=== PATIENT | male | born 1940 | race Caucasian/White ===

== ENCOUNTER → 2016-08-26 | Outpatient (CLI) | payer MEDICARE, OTHER ==
[2016-08-26 12:53] LABS: MEAN CORPUSCULAR HEMOGLOBIN 30.3 pg (27.0-33.0); MEAN CORPUSCULAR HGB CONC 32.6 g/dl (32.0-36.5); MEAN CORPUSCULAR VOLUME 92.9 fl (80.0-96.0); RED CELL DISTRIBUTION WIDTH 12.5 % (11.5-14.5); WHITE BLOOD COUNT 4.7 K/mm3 (4.0-10.0)
[2016-08-26 13:20] LABS: ALT/SGPT 22 U/L (12-78); ANION GAP 5 MEQ/L (8-16); AST/SGOT 19 U/L (15-37); BLOOD UREA NITROGEN 19 MG/DL (7-18); CALCIUM LEVEL 8.9 MG/DL (8.8-10.2); CARBON DIOXIDE LEVEL 29 MEQ/L (21-32); CHLORIDE LEVEL 108 MEQ/L (98-107); GLOMERULAR FILTRATION RATE > 60.0 (>42); GLUCOSE, FASTING 105 MG/DL (83-110); POTASSIUM SERUM 4.9 MEQ/L (3.5-5.1); SODIUM LEVEL 142 MEQ/L (136-145)
[2016-08-26 13:21] LABS: ALBUMIN 4.2 GM/DL (3.2-5.2); ALKALINE PHOSPHATASE 94 U/L (45-117); BILIRUBIN,TOTAL 0.6 MG/DL (0.2-1.0); CHOLESTEROL LEVEL 195 MG/DL (<200); FOLATE 14.1 NG/ML; TOTAL PROTEIN 7.2 GM/DL (6.4-8.2); TRIGLYCERIDES LEVEL 83 MG/DL (<150); VITAMIN B12 LEVEL 325 PG/ML
== END ==
LOC: M WUC 09:09
PROVIDERS: ATTEND Internal Medicine
DX: G62.9 Polyneuropathy, unspecified (principal); R73.01 Impaired fasting glucose; E78.00 Pure hypercholesterolemia, unspecified

== ENCOUNTER → 2017-11-19 | Outpatient (REF) | payer MEDICARE, OTHER ==
[2017-11-19 12:26] LABS: HEMATOCRIT 44.8 % (42.0-52.0); HEMOGLOBIN 14.9 g/dl (13.5-17.5); MEAN CORPUSCULAR HEMOGLOBIN 30.3 pg (27.0-33.0); MEAN CORPUSCULAR HGB CONC 33.3 g/dl (32.0-36.5); MEAN CORPUSCULAR VOLUME 91.1 fl (80.0-96.0); PLATELET COUNT, AUTOMATED 216 10^3/uL (150-450); RED BLOOD COUNT 4.92 10^6/uL (4.30-6.10); RED CELL DISTRIBUTION WIDTH 12.2 % (11.5-14.5)
[2017-11-19 13:44] LABS: ALBUMIN 3.9 GM/DL (3.2-5.2); ALBUMIN/GLOBULIN RATIO 1.15 (1.00-1.93); ALKALINE PHOSPHATASE 94 U/L (45-117); ALT/SGPT 23 U/L (12-78); ANION GAP 7 MEQ/L (8-16); AST/SGOT 16 U/L (7-37); BILIRUBIN,TOTAL 0.5 MG/DL (0.2-1.0); BLOOD UREA NITROGEN 21 MG/DL (7-18); CALCIUM LEVEL 8.9 MG/DL (8.8-10.2); CARBON DIOXIDE LEVEL 28 MEQ/L (21-32); CHLORIDE LEVEL 109 MEQ/L (98-107); CHOLESTEROL LEVEL 183 MG/DL (<200); CHOLESTEROL RISK RATIO 2.904 (<5); CREATININE FOR GFR 1.23 MG/DL (0.70-1.30); GLOMERULAR FILTRATION RATE > 60.0 (>42); GLUCOSE, FASTING 96 MG/DL (70-100); HDL CHOLESTEROL 63 MG/DL (>40); LDL CHOLESTEROL 106.8 MG/DL (<100); NON-HDL-C 120 MG/DL; POTASSIUM SERUM 4.6 MEQ/L (3.5-5.1); SODIUM LEVEL 144 MEQ/L (136-145); TOTAL PROTEIN 7.3 GM/DL (6.4-8.2); TRIGLYCERIDES LEVEL 66 MG/DL (<150)
[2017-11-19 14:06] LABS: VITAMIN B12 LEVEL 395 PG/ML
[2017-11-19 14:07] LABS: FOLATE 12.5 NG/ML
== END ==
LOC: M SFHCPLAZ 09:04
DX: G62.9 Polyneuropathy, unspecified (principal); M88.9 Osteitis deformans of unspecified bone; E78.00 Pure hypercholesterolemia, unspecified; R73.01 Impaired fasting glucose; Z79.899 Other long term (current) drug therapy
CPT/HCPCS: 82746

== ENCOUNTER 2018-02-16 06:36 | Day surgery (SDC) | payer MEDICARE, OTHER ==
[2018-02-16] MEDS ORDERED: NS 1,000 ML IV (07:30)
[2018-02-16] MEDS ORDERED: LIDOCAINE 2% INJ 100 MG/5 ML SDV (FOR ANES.) As Ordered (07:38)
[2018-02-16] MEDS ORDERED: PROPOFOL 500 MG/50 ML VIAL As Ordered (07:38)
== END 2018-02-16 08:08 | disposition home or self-care (01) ==
LOC: M OPP 06:36
DX: Z12.11 Encounter for screening for malignant neoplasm of colon (principal); Z86.010 Personal history of colon polyps; D37.3 Neoplasm of uncertain behavior of appendix; D12.5 Benign neoplasm of sigmoid colon; Z98.0 Intestinal bypass and anastomosis status; K57.30 Diverticulosis of large intestine without perforation or abscess without bleeding; K64.8 Other hemorrhoids; Z86.718 Personal history of other venous thrombosis and embolism; Z86.19 Personal history of other infectious and parasitic diseases; R06.02 Shortness of breath; M19.90 Unspecified osteoarthritis, unspecified site; G62.9 Polyneuropathy, unspecified; M88.0 Osteitis deformans of skull; Z86.711 Personal history of pulmonary embolism; R06.83 Snoring; G47.30 Sleep apnea, unspecified; N40.1 Benign prostatic hyperplasia with lower urinary tract symptoms; Z87.19 Personal history of other diseases of the digestive system; Z96.652 Presence of left artificial knee joint; Z88.8 Allergy status to other drugs, medicaments and biological substances; Z79.82 Long term (current) use of aspirin; Z79.899 Other long term (current) drug therapy; Z80.52 Family history of malignant neoplasm of bladder
CPT/HCPCS: 45385

== ENCOUNTER 2018-09-01 10:28 | Emergency (ER) | payer MEDICARE, OTHER ==
[~2018-09-01] VITALS: Ht 182.9 cm; Wt 91.6 kg
[~2018-09-01 10:28] MED LIST: ASPI81TA85 PO; MAGN250T9 PO; MULTCAP PO; NORT25CA2 PO
--- NOTE | 2018-09-01 11:43 | REP ---
SINGLE VIEW CHEST: There is no evidence of acute infiltrate. No pleural effusion is seen. The heart is normal in size. The mediastinal silhouette is unremarkable. The visualized osseous structures are intact. There is an old healed fracture of the left clavicle. IMPRESSION: No acute pulmonary disease. Electronically Signed by Hamilton Lee MD 09/02/2018 02:58 P
[2018-09-01 11:48] LABS: BASO % 0.7 % (0.0-1.0); EOS # 0.4 10^3/uL (0.0-0.50); EOS % 5.8 % (0.0-3.0); HEMATOCRIT 42.9 % (42.0-52.0); HEMOGLOBIN 14.1 g/dl (13.5-17.5); LYMPH # 1.5 10^3/uL (1.5-4.5); LYMPH % 24.4 % (24.0-44.0); MEAN CORPUSCULAR HEMOGLOBIN 29.6 pg (27.0-33.0); MEAN CORPUSCULAR HGB CONC 32.9 g/dl (32.0-36.5); MEAN CORPUSCULAR VOLUME 90.1 fl (80.0-96.0); MONO # 0.6 10^3/uL (0.0-0.8); MONO % 10.6 % (0.0-5.0); NEUTROPHILS # 3.5 10^3/uL (1.8-7.7); NEUTROPHILS % 57.8 % (36.0-66.0); PLATELET COUNT, AUTOMATED 220 10^3/uL (150-450); RED BLOOD COUNT 4.76 10^6/uL (4.30-6.10); WHITE BLOOD COUNT 6.1 10^3/uL (4.0-10.0)
[2018-09-01 11:55] LABS: INR 1.05; PROTHROMBIN TIME 13.8 SECONDS (12.1-14.4)
[2018-09-01 12:21] LABS: ALBUMIN 3.6 GM/DL (3.2-5.2); ALT/SGPT 29 U/L (12-78); BILIRUBIN,DIRECT < 0.1 MG/DL (0.0-0.2); BILIRUBIN,TOTAL 0.5 MG/DL (0.2-1.0); BLOOD UREA NITROGEN 22 MG/DL (7-18); CARBON DIOXIDE LEVEL 25 MEQ/L (21-32); CHLORIDE LEVEL 108 MEQ/L (98-107); CPK CREATINE PHOSPHOKINASE 144 U/L (39-308); CREATININE FOR GFR 1.19 MG/DL (0.70-1.30); GLOMERULAR FILTRATION RATE > 60.0 (>42); GLUCOSE, FASTING 77 MG/DL (70-100); MB/CK RELATIVE INDEX 1.25 (< OR =4); NT-PRO BNP 50 PG/ML (<450); SODIUM LEVEL 139 MEQ/L (136-145); TROPONIN I < 0.02 NG/ML (< 0.10)
[2018-09-01] MEDS ORDERED: ISOVUE-370 76% 100ML VIAL (Q9967) As Ordered ONE (12:43)
--- NOTE | 2018-09-01 13:44 | REP ---
CT ANGIOGRAM CHEST: TECHNIQUE: Axial contrast enhanced images from the thoracic inlet to the upper abdomen using 100 mL Isovue 370 intravenous contrast material with multiplanar reformations. There is no CT evidence of pulmonary embolism. There is no thoracic aortic aneurysm or dissection. Mild atherosclerotic calcifications are seen of the thoracic aorta. Heart is normal in size. No mediastinal, hilar, or chest wall lymphadenopathy is seen. There is no pleural or pericardial effusion. The lungs show diffuse interstitial fibrotic changes. Focal fibrotic changes seen in the left upper lobe laterally. IMPRESSION: No CT evidence of pulmonary embolism or other acute finding. Electronically Signed by Hamilton Lee MD 09/02/2018 03:27 P
[2018-09-01] MEDS ORDERED: MEDR4PAK PO (14:12)
[2018-09-01 14:45] VITALS: BP 135/76
--- NOTE | 2018-09-01 19:35 | ECGEPIP ---
Stationary ECG Study [facility] - ED Test Date: 2018-09-01 Pat Name: LOVE ANG Department: Room: - Gender: M Academy Director: : 1940 Requested By: Kayla Chao Order Number: [id number] Reading MD: Sudhir Martin Measurements Intervals [place] Rate: 68 P: 54 DE: 157 QRS: -17 QRSD: 93 T: 36 QT: 373 QTc: 397 Interpretive Statements SINUS RHYTHM Comparison tracing not on file Electronically Signed On 09-01-2018 19:35:29 EDT by Sudhir Martin
== END 2018-09-01 14:59 | disposition home or self-care (01) ==
LOC: M ED 10:28
DX: J84.10 Pulmonary fibrosis, unspecified (principal); G62.9 Polyneuropathy, unspecified; Z86.711 Personal history of pulmonary embolism; Z95.828 Presence of other vascular implants and grafts; Z88.8 Allergy status to other drugs, medicaments and biological substances; Z79.82 Long term (current) use of aspirin; Z79.899 Other long term (current) drug therapy
CPT/HCPCS: 71045; 71275; 80048; 80076; 82550; 82553; 83880; 84443; 84484; 85025; 85610; 93005; 93041; 94760; 99285; Q9967

== ENCOUNTER → 2018-10-05 | Outpatient (CLI) | payer MEDICARE, OTHER ==
[~2018-10-05] MED LIST changes: +E-Z-GAS II EFFERVESCENT PACKET (SODIUM BICARB./CITRIC ACID/SIMETHICONE) As Ordered ONE; +E-Z-HD 98% w/w 340GM SUSP BTL As Ordered ONE; +E-Z-PAQUE 96% w/w SUSP 176GM BTL As Ordered ONE; +MEDR4PAK PO
--- NOTE | 2018-10-05 18:47 | REP ---
Examination Requested: Esophagram Barium Swallow Reason For Exam/Comment: Dysphasia Esophagram: The procedure was performed VALERIANO Godoy, under the direct supervision of Dr. Ramos. The images were reviewed with Dr. Ramos. A single PA chest x-ray is submitted as a project archivist film. The superior mediastinal structures are midline. The heart size is within normal limits. The lungs are clear. Liquid barium and gas producing granules were given in the erect position as well as liquid barium in the prone oblique position, in order to perform a double contrast esophagram examination. Oral and pharyngeal stages of the examination were unremarkable. Delayed aspiration with a cough response was observed. Esophageal transport is efficient and there is no esophagitis, stricture, or mucosal ring noted. Tertiary contractions were observed throughout the course of the exam. There is no hiatal hernia noted. Gastroesophageal reflux was not observed throughout the course of this exam. Impression: 1. Delayed aspiration with a cough response. 2. Tertiary contractions 0.5 minutes of fluoroscopy time was utilized for this procedure. Reviewed by VALERIANO Chowdary 10/05/2018 05:23 P Electronically Signed by Jenaro Ramos MD 10/05/2018 06:38 P
== END ==
LOC: M RAD 09:50
PROVIDERS: ATTEND Internal Medicine
DX: R13.14 Dysphagia, pharyngoesophageal phase (principal)

== ENCOUNTER → 2018-11-23 | Outpatient (REF) | payer MEDICARE, OTHER ==
[~2018-11-23] MED LIST changes: -E-Z-GAS II EFFERVESCENT PACKET (SODIUM BICARB./CITRIC ACID/SIMETHICONE) As Ordered ONE; -E-Z-HD 98% w/w 340GM SUSP BTL As Ordered ONE; -E-Z-PAQUE 96% w/w SUSP 176GM BTL As Ordered ONE
[2018-11-23 11:58] LABS: ALBUMIN 3.9 GM/DL (3.2-5.2); BILIRUBIN,TOTAL 0.3 MG/DL (0.2-1.0); CALCIUM LEVEL 9.2 MG/DL (8.8-10.2); CHOLESTEROL RISK RATIO 3.107 (<5); CREATININE FOR GFR 1.33 MG/DL (0.70-1.30); GLOMERULAR FILTRATION RATE 55.5 (>42); POTASSIUM SERUM 4.7 MEQ/L (3.5-5.1); TOTAL PROTEIN 7.5 GM/DL (6.4-8.2)
[2018-11-23 13:00] LABS: HEMATOCRIT 45.8 % (42.0-52.0); MEAN CORPUSCULAR HEMOGLOBIN 30.5 pg (27.0-33.0); MEAN CORPUSCULAR HGB CONC 32.8 g/dl (32.0-36.5); MEAN CORPUSCULAR VOLUME 93.1 fl (80.0-96.0); PLATELET COUNT, AUTOMATED 223 10^3/uL (150-450); RED BLOOD COUNT 4.92 10^6/uL (4.30-6.10); WHITE BLOOD COUNT 5.4 10^3/uL (4.0-10.0)
== END ==
LOC: M SFHCPLAZ 09:03
PROVIDERS: ATTEND Internal Medicine
DX: M88.9 Osteitis deformans of unspecified bone (principal); E78.00 Pure hypercholesterolemia, unspecified

== ENCOUNTER 2019-10-06 11:01 | Inpatient (IN) | payer MEDICARE, OTHER ==
[~2019-10-06] VITALS: Ht 182.9 cm; Wt 99.5 kg
[2019-10-06] MEDS ORDERED: LEVOTAB10 PO (11:10)
[2019-10-06] MEDS ORDERED: MAGN250T7 PO (11:10)
[2019-10-06 11:33] LABS: VENOUS BASE EXCESS -3.7 (-2.0-2.0); VENOUS O2 SATURATION 71.1 % (60.0-80.0); VENOUS PARTIAL PRESSURE CO2 42.1 mmHg (38.0-50.0); VENOUS PARTIAL PRESSURE O2 37.5 mmHg (30.0-50.0); VENOUS PH 7.336 UNITS (7.330-7.430); VENOUS STANDARD HCO3 20.8 MEQ/L; VENOUS TOTAL CO2 23.3 MEQ/L (24.0-28.0)
[2019-10-06 11:40] LABS: BASO % 0.4 % (0.0-1.0); EOS # 0.2 10^3/uL (0.0-0.5); EOS % 2.1 % (0.0-3.0); HEMATOCRIT 45.7 % (42.0-52.0); HEMOGLOBIN 14.9 g/dl (13.5-17.5); LYMPH # 1.2 10^3/uL (1.5-5.0); LYMPH % 15.3 % (24.0-44.0); MEAN CORPUSCULAR HEMOGLOBIN 30.3 pg (27.0-33.0); MEAN CORPUSCULAR HGB CONC 32.6 g/dl (32.0-36.5); MEAN CORPUSCULAR VOLUME 92.9 fl (80.0-96.0); MONO # 0.6 10^3/uL (0.0-0.8); MONO % 7.7 % (0.0-5.0); NEUTROPHILS # 5.7 10^3/uL (1.5-8.5); NEUTROPHILS % 74.1 % (36.0-66.0); PLATELET COUNT, AUTOMATED 158 10^3/uL (150-450); RED BLOOD COUNT 4.92 10^6/uL (4.30-6.10); WHITE BLOOD COUNT 7.7 10^3/uL (4.0-10.0)
[2019-10-06 11:48] LABS: INR 1.2; PROTHROMBIN TIME 14.9 SECONDS (11.8-14.0)
[2019-10-06 11:49] LABS: PARTIAL THROMBOPLASTIN TIME 32.6 SECONDS (25.0-38.4)
[2019-10-06 12:13] LABS: ALBUMIN 3.7 GM/DL (3.2-5.2); ALT/SGPT 39 U/L (12-78); AMYLASE 58 U/L (25-115); BILIRUBIN,DIRECT 0.2 MG/DL (0.0-0.2); BILIRUBIN,TOTAL 0.5 MG/DL (0.2-1.0); BLOOD UREA NITROGEN 21 MG/DL (7-18); C REACTIVE PROTEIN QUANTITATIV 0.57 MG/DL (0.00-0.30); CALCIUM LEVEL 8.7 MG/DL (8.8-10.2); CARBON DIOXIDE LEVEL 22 MEQ/L (21-32); CHLORIDE LEVEL 107 MEQ/L (98-107); CK-MB VALUE MASS < 1.0 NG/ML (<3.6); CPK CREATINE PHOSPHOKINASE 41 U/L (39-308); CREATININE FOR GFR 1.27 MG/DL (0.70-1.30); GLOMERULAR FILTRATION RATE 58.4 (>42); GLUCOSE, FASTING 117 MG/DL (70-100); MB/CK RELATIVE INDEX 2.44 (< OR =4); POTASSIUM SERUM 4.5 MEQ/L (3.5-5.1); SODIUM LEVEL 137 MEQ/L (136-145); TOTAL PROTEIN 7.3 GM/DL (6.4-8.2); TROPONIN I < 0.02 NG/ML (< 0.10)
[2019-10-06 12:27] LABS: APPEARANCE, URINE HAZY (CLEAR); BACTERIA, URINE AUTO NEGATIVE (NEGATIVE); BILIRUBIN, URINE AUTO NEGATIVE (NEGATIVE); BLOOD, URINE BLOOD NEGATIVE (NEGATIVE); COLOR, URINE YELLOW (YELLOW); GLUCOSE, URINE (UA) AUTO NEGATIVE (NEGATIVE); KETONE, URINE AUTO NEGATIVE (NEGATIVE); LEUKOCYTE ESTERASE, URINE AUTO NEGATIVE (NEGATIVE); MUCUS, URINE SMALL (NEGATIVE); NITRITE, URINE AUTO NEGATIVE (NEGATIVE); PROTEIN, URINE AUTO NEGATIVE (NEGATIVE); RBC, URINE AUTO 3 /HPF (0-3); SPECIFIC GRAVITY URINE AUTO 1.021 (1.002-1.035); SQUAMOUS EPITHELIAL CELL UR AU 1 /HPF (0-6); UROBILINOGEN, URINE AUTO 0.2 mg/dL (0.0-2.0); WBC, URINE AUTO 4 /HPF (0-3)
--- NOTE | 2019-10-06 12:29 | REP ---
CHEST, SINGLE VIEW: Single view of the chest is performed. No acute infiltrate is seen. Linear fibroatelectasis seen in the left lung base. The heart is not enlarged. The mediastinal silhouette is unremarkable. Old healed fracture is noted in the mid shaft of the left clavicle. There are mild degenerative changes of the spine. IMPRESSION: No acute pulmonary disease. Electronically Signed by Hamilton Lee MD 10/07/2019 11:16 A
[2019-10-06] MEDS ORDERED: NS 500 ML IV ONE (12:30)
[2019-10-06] MEDS ORDERED: ISOVUE-370 76% 100ML VIAL As Ordered ONE (14:44)
--- NOTE | 2019-10-06 16:28 | REP ---
CT ANGIOGRAM CHEST: TECHNIQUE: Axial contrast-enhanced images from the thoracic inlet to the upper abdomen using 100 mL Isovue-370 intravenous contrast material with multiplanar reformations. COMPARISON: 09/01/2018 There is a small filling defect in a segmental branch of the posterior right lower lobe, consistent with a small nonocclusive pulmonary embolism. No other pulmonary emboli are seen bilaterally. There is no thoracic aortic aneurysm or dissection. The heart is not enlarged. There is no pleural or pericardial effusion. There is no mediastinal, hilar, or chest wall lymphadenopathy. There is a small hiatal hernia. There are diffuse fibrotic changes in the lungs with some mild dependent atelectatic change. There is a slightly displaced rib fracture on the left of the 5th rib. There are left renal cysts. There are degenerative changes of the spine. IMPRESSION: Nonocclusive single pulmonary embolism in a pulmonary artery branch posteriorly supplying the posterior segment of the right lower lobe. No other pulmonary emboli seen. Diffuse fibroatelectatic changes in the lungs. Slightly displaced fracture lateral left 5th rib. Electronically Signed by Hamilton Lee MD 10/07/2019 11:51 A
--- NOTE | 2019-10-06 17:22 | IPNPDOC ---
Text Note Date of Service The patient was seen on 10/06/19. NOTE Mr. Ely is a 79 showed with a history of PE and IVC filter placement along with neuropathy who is admitted for evaluation of shortness of breath of unclear cause. - Follow up serial troponins, & BNP and if work up neg consider referral to allergy, immunology and an outpatient basis Rest per Dr. Aldrich's H&P VS,Fishbone, I+O VS, Apoorva, I+O Laboratory Tests 10/06/19 11:22 Vital Signs Date Time Temp Pulse Resp B/P (MAP) Pulse Ox O2 Delivery O2 Flow Rate FiO2 10/06/19 16:46 96 18 100 Room Air 10/06/19 16:30 145/80 (101) 10/06/19 11:09 96.6 HILLARY KELLOGG MD Oct 06, 2019 17:22
[2019-10-06] MEDS ORDERED: IPRATROPIUM 0.5MG/ALBUTEROL 2.5MG INH SOL UD 3ML (DUONEB)(J7620) NEB PRN (17:30)
--- NOTE | 2019-10-06 17:43 | HPEPDOC ---
[facility] Medical History & Physical Date of Admission Oct 06, 2019 Date of Service: Oct 06, 2019 Primary Care Physician: Royer Dunn Attending Physician: HILLARY KELLOGG MD History and Physical CHIEF COMPLAINT: Shortness of breath HISTORY OF PRESENT ILLNESS: Patient is a 79 year old male who presented to the [facility] ER with complaint of shortness of breath and fatigue. He stated that he had gotten out of bed and started walking and felt like he could not catch his breath. He had called his who stated that he didn't look so good. He states that at rest he is not short of breath. He does complain of shortness of breath when he exerts himself. He denies chest pain. He denies pleuritic pain. He does complain of a raspy voice which he gets with his shortness of breath every year that he returns from [place] to [place]. He does have a history of a right leg DVT in the past which resulted in multiple subsegmental pulmonary emboli. At the time he was treated with warfarin and had a IVC filter placed. He stated that a few years ago he was taken off of warfarin because he didn't like to get his INR checked. He currently denies any pain in his legs or increased swelling. The patient did state that a year ago when he returned to [place] from [place] he had similar symptoms which included shortness of breath on exertion and a raspy voice. He was seen in the ER during that time and received a CT angiogram which was negative for PE. At the time there was suggestion of possible interstitial lung disease. He was seen by [facility] as an outpatient and received spirometry which was a normal FVC and FEV1 with a normal FVC/FEV1 ratio and nothing to suggest interstitial lung disease. He was recommended for a endoscopy due to his "raspy" voice however he has not had this completed. He did have an Echocardiogram which demonstrates a normal LVEF but slightly elevated PASP of 39. In the ER the patient was vitally stable. He was not hypoxic and complained of subjective shortness of breath. A chest X-ray was completed which demonstrated linear atelectasis in the left lobe but no acute cardiopulmonary process. A CTA was obtained which demonstrated a nonocclusive single pulmonary embolism in the pulmonary artery branch posteriorly supplying the posterior segment of the right lower lobe. No other pulmonary emboli were demonstrated. Additionally there was diffuse fibroatelectatic changes in the lung as demonstrated from previous CT imaging. PAST MEDICAL HISTORY: 1. Neuropathy 2. Prostate Hypertrophy 3. Dyslipidemia 4. Paget's Disease 5. Lumbar Spinal Stenosis 6. History of Left leg DVT and subsequent PE 7. Premalignant polyps resulting in partial colon resection PAST SURGICAL HISTORY: 1. Herniorrhaphy 2. Pilonidal Cyst Surgery 3. Deviated Septum Repair 4. Left Shoulder Repair 5. TURP 6. Right Hemicolectomy in 2013 7. Left Total Knee Replacement 8. Shavon Filter Placement in 2006 SOCIAL HISTORY: Patient lives with his . They live in [place] during the winter months and return to [place] in the Summer. He is a former smoker and quit 40 years ago. He drinks alcohol on occasion. He denies any IV or illicit drug use FAMILY HISTORY: Patients father of a stroke. His mother in a motor vehicle accident. He has 2 sisters who have . One passed from a cancer and the other from COPD. His brother has from COPD ALLERGIES: Please see below. REVIEW OF SYSTEMS: CONSTITUTIONAL: Denies fevers, chills, nightsweats. Admits to fatigue HEENT: ADmits to raspy voice. Denies cough. ADmits to some dysphagia CARDIOVASCULAR: Denies chest pain, palpitations, or feelings of the heart racing RESPIRATORY: Admits to shortness of breath with exertion. Denies cough or wheeze GASTROINTESTINAL Denies abdominal pain. Denies nausea, vomiting, diarrhea, or constipation GENITOURINARY: Denies dysuria, increased frequency or urgency SKIN: Denies rashes or lesions MUSCULOSKELETAL: Denies any muscle weakness NEUROLOGICAL: Denies any changes in gait or speech. ADmits to chronic leg neuropathy PSYCHIATRIC: Denies depression or anxiety ENDOCRINE: Denies heat intolerance or cold intolerance. Denies diabetes. HEMATOLOGIC/LYMPHATIC: Denies easy bruising or bleeding. Denies history of GI bleed. Admits to history of DVT and PE with Vena cava filter placement HOME MEDICATIONS: Please see below. PHYSICAL EXAMINATION: VITAL SIGNS: Temperature 96.6, pulse 95, respiratory rate 18, blood pressure 168/64, pulse oximetry 100% on room air. GENERAL APPEARANCE: Awake, alert, and oriented. Appears in no acute distress. Lying in bed comfortably. No conversational dyspnea HEENT: Atraumatic, normocephalic. Eyes are nonicteric. Trachea is midline CARDIOVASCULAR: Normal S1, S2. Regular rate and rhythm. No clicks rubs or murmurs LUNGS: Clear vesicular breath sounds bilaterally. Mild bibasilar crackles. Good respiratory effort. No wheezes, rhonchi, or rales. Symmetric chest expansion ABDOMEN: Soft, nondistended. Nontender. Normoactive bowel sounds. Surgical scar present EXTREMITIES: No edema. Full and equal pulses in bilateral lower extremities. No tenderness in calves. Left knee surgical scar NEUROLOGICAL: No focal neurological deficits PSYCHIATRIC: Mood and affect appear appropriate LABORATORY DATA: See below. IMAGING: CHEST, SINGLE VIEW: Single view of the chest is performed. No acute infiltrate is seen. Linear fibroatelectasis seen in the left lung base. The heart is not enlarged. The mediastinal silhouette is unremarkable. Old healed fracture is noted in the mid shaft of the left clavicle. There are mild degenerative changes of the spine. IMPRESSION: No acute pulmonary disease. CT ANGIOGRAM CHEST: TECHNIQUE: Axial contrast-enhanced images from the thoracic inlet to the upper abdomen using 100 mL Isovue-370 intravenous contrast material with multiplanar reformations. COMPARISON: 09/01/2018 There is a small filling defect in a segmental branch of the posterior right lower lobe, consistent with a small nonocclusive pulmonary embolism. No other pulmonary emboli are seen bilaterally. There is no thoracic aortic aneurysm or dissection. The heart is not enlarged. There is no pleural or pericardial effusion. There is no mediastinal, hilar, or chest wall lymphadenopathy. There is a small hiatal hernia. There are diffuse fibrotic changes in the lungs with some mild dependent atelectatic change. There is a slightly displaced rib fracture on the left of the 5th rib. There are left renal cysts. There are degenerative changes of the spine. IMPRESSION: Nonocclusive single pulmonary embolism in a pulmonary artery branch posteriorly supplying the posterior segment of the right lower lobe. No other pulmonary emboli seen. Diffuse fibroatelectatic changes in the lungs. Slight displaced fracture lateral left 5th rib. MICROBIOLOGY: Please see below. ASSESSMENT: Patient is a 79 year old male who presented to [facility] ER with complaint of exertional shortness of breath and found to have a subsegmental PE on CT imaging. Patient has been hemodynamically stable since presentation . PLAN: 1. Shortness of breath 2/2 Pulmonary embolism vs right rib fracture vs allergic asthma vs silent CT vs deconditioning -Patient presented with subjective shortness of breath. He is not hypoxic and with O2 sats of 100%. CT imaging demonstrating a subsegmental pulmonary artery nonocclusive embolism. Unclear whether this is an old PE or acute. CT imaging 1 year ago did not demonstrate PE. Differential for SOB is wide. Possibly s econdary to PE although unlikely at this time. Patient has presented with similar symptoms 1 year ago and did not have a PE at the time. Consider possible allergic asthma. Additionally, patient does have a right rib fracture which could lead to restrictive process and subjective shortness of breath. Will consider silent CT although unlikely. -Will hold anticoagulation for now. Will determine whether patients PE is old or acute. He does have IVC filter in place. Currently he is not hypoxic and vitally stable. No signs of right heart strain. -Oxygen Therapy orders maintain 88-92% -Duonebs -Incentive spirometry as patient has atelectatic regions -Telemetry due to Tachycardia 2. Pulmonary Hypertension -Patient has Echo completed in 2019 demonstrating a PASP of 39. Likely contributing to his symptoms 3. Right 5th Rib Fracture -Patient sustained a rib fracture when he tripped getting off his scooter about 1 week ago. Currently states his pain is controlled -Tylenol for pain 4. Lactic Acidosis -Mildly elevated lactic acid of 2.8. Will likely correct with IV fluids. F/U pending 5. DVT prophylaxis -Eliquis Vital Signs Vital Signs Date Time Temp Pulse Resp B/P (MAP) Pulse Ox O2 Delivery O2 Flow Rate FiO2 10/06/19 15:16 91 19 99 10/06/19 15:00 183/96 (125) 10/06/19 14:01 Room Air 10/06/19 11:09 96.6 Laboratory Data Labs 24H Laboratory Tests 2 10/06/19 11:22: Immature Granulocyte % (Auto) 0.4, Neutrophils (%) (Auto) 74.1H, Lymphocytes (%) (Auto) 15.3L, Monocytes (%) (Auto) 7.7H, Eosinophils (%) (Auto) 2.1, Basophils (%) (Auto) 0.4, Neutrophils # (Auto) 5.7, Lymphocytes # (Auto) 1.2L, Monocytes # (Auto) 0.6, Eosinophils # (Auto) 0.2, Basophils # (Auto) 0.0, Nucleated Red Blood Cells % (auto) 0.0, Prothrombin Time 14.9H, Prothromb Time International Ratio 1.20, Activated Partial Thromboplast Time 32.6, Blood Gas Bicarbonate Standard 20.8, Venous Blood pH 7.336, Venous Blood Partial Pressure CO2 42.1, Venous Blood Partial Pressure O2 37.5, Venous Blood Total Carbon Dioxide 23.3L, Venous Blood HCO3 22.0L, Venous Blood Oxygen Saturation 71.1, Venous Blood Base Excess -3.7L, Anion Gap 8, Glomerular Filtration Rate 58.4, Lactic Acid Level 2.8*H, Calcium Level 8.7L, Total Bilirubin 0.5, Direct Bilirubin 0.2, Aspartate Amino Transf (AST/SGOT) 24, Alanine Aminotransferase (ALT/SGPT) 39, Alkaline Phosphatase 114, Total Creatine Kinase 41, Creatine Kinase MB < 1.0, Creatine Kinase MB Relative Index 2.44, Troponin I < 0.02, C-Reactive Protein, Quantitative 0.57H, Total Protein 7.3, Albumin 3.7, Albumin/Globulin Ratio 1.0, Amylase Level 58 10/06/19 12:07: Urine Color YELLOW, Urine Appearance HAZY, Urine pH 5.0, Urine Specific [place] 1.021, Urine Protein NEGATIVE, Urine Glucose (Auto)(UA) NEGATIVE, Urine Ketones (Auto) NEGATIVE, Urine Blood NEGATIVE, Urine Nitrite NEGATIVE, Urine Bilirubin NEGATIVE, Urine Urobilinogen 0.2, Urine Leukocyte Esterase (Auto) NEGATIVE, Urine WBC (Auto) 4H, Urine RBC (Auto) 3, Urine Hyaline Casts (Auto) 1, Urine Bacteria (Auto) NEGATIVE, Urine Squamous Epithelial Cells 1, Urine Mucus (Auto) SMALL, Urine Sperm (Auto) 10/06/19 12:50: D-Dimer, Quantitative > 4000H CBC/BMP Laboratory Tests 10/06/19 11:22 Microbiology Microbiology 10/06/19 Blood Culture, Received Pending 10/06/19 Urine Culture, Received Pending 10/06/19 Blood Culture, Received Pending Home Medications Scheduled Aspirin (Aspir 81) 81 Mg Tab, 81 MG PO QHS Levocetirizine Dihydrochloride (Levocetirizine Dihydrochloride) 5 Mg Tablet, 5 MG PO QHS Magnesium Oxide (Magnesium) 250 Mg Tablet, 250 MG PO QHS Nortriptyline HCl (Nortriptyline HCl) 25 Mg Cap, 25 MG PO Q2D TAKES AT HS Allergies Coded Allergies: celecoxib (Verified Allergy, Intermediate, unsure, 09/01/18) tamsulosin (Verified Allergy, Intermediate, unsure, 09/01/18) A-FIB/CHADSVASC A-FIB History Current/History of A-Fib/PAF?: No GME ATTESTATION GME ATTESTATION My faculty preceptor for this patient encounter was physically present during the encounter and was fully available. All aspects of the patient interview, examination, medical decision making process, and medical care plan development were reviewed and approved by the faculty preceptor. The faculty preceptor is aware and concurs with the plan as stated in the body of this note and will attest to such by his/her cosignature. ATTENDING NOTE I reviewed the note and agree the findings as documented please see my addendum from 10/06/2019 MARCELINA ESCALANTE DO Oct 06, 2019 17:43 HILLARY KELLOGG MD Oct 06, 2019 18:04
[2019-10-06] MEDS ORDERED: ACETAMINOPHEN TAB 650MG DOSE (2X325MG) PO PRN (17:45)
[2019-10-06] MEDS ORDERED: PILL CUTTER 1 EACH XX PRN (18:15)
[2019-10-06] MEDS: LORATADINE 10 MG TAB PO SCH (20:54)
[2019-10-06] MEDS: CETIRIZINE (ZyrTEC) 10 MG TAB PO SCH (20:54)
[2019-10-06] MEDS ORDERED: HEPARIN SOD (PORCINE) 5000UNITS/ML VIAL (J1644 PER 1000UNITS) SQ SCH (21:00)
[2019-10-06 22:00] VITALS: BP 140/76
[2019-10-07 06:00] VITALS: BP 105/70
[2019-10-07] MEDS ORDERED: ELIQ5TAB PO (08:01)
[2019-10-07] MEDS ORDERED: PRIL20TA2 PO (08:02)
[2019-10-07] MEDS: APIXABAN 5 MG TAB (ELIQUIS) PO SCH ×2 (08:10→20:03)
[2019-10-07 08:41] LABS: BASO % 0.5 % (0.0-1.0); EOS # 0.3 10^3/uL (0.0-0.5); EOS % 3.2 % (0.0-3.0); HEMATOCRIT 44.9 % (42.0-52.0); HEMOGLOBIN 14.3 g/dl (13.5-17.5); LYMPH # 1.1 10^3/uL (1.5-5.0); LYMPH % 14.4 % (24.0-44.0); MEAN CORPUSCULAR HGB CONC 31.8 g/dl (32.0-36.5); MEAN CORPUSCULAR VOLUME 94.3 fl (80.0-96.0); MONO # 0.5 10^3/uL (0.0-0.8); MONO % 5.7 % (0.0-5.0); NEUTROPHILS # 5.9 10^3/uL (1.5-8.5); NEUTROPHILS % 75.4 % (36.0-66.0); PLATELET COUNT, AUTOMATED 151 10^3/uL (150-450); RED BLOOD COUNT 4.76 10^6/uL (4.30-6.10); WHITE BLOOD COUNT 7.9 10^3/uL (4.0-10.0)
[2019-10-07 09:02] LABS: ALBUMIN 3.7 GM/DL (3.2-5.2); ALT/SGPT 36 U/L (12-78); BILIRUBIN,TOTAL 0.8 MG/DL (0.2-1.0); BLOOD UREA NITROGEN 18 MG/DL (7-18); C REACTIVE PROTEIN QUANTITATIV 1.53 MG/DL (0.00-0.30); CALCIUM LEVEL 8.7 MG/DL (8.8-10.2); CARBON DIOXIDE LEVEL 25 MEQ/L (21-32); CHLORIDE LEVEL 106 MEQ/L (98-107); CHOLESTEROL LEVEL 215 MG/DL (<200); CHOLESTEROL RISK RATIO 3.412 (<5); CK-MB VALUE MASS < 1.0 NG/ML (<3.6); CPK CREATINE PHOSPHOKINASE 49 U/L (39-308); CREATININE FOR GFR 1.36 MG/DL (0.70-1.30); GLUCOSE, FASTING 169 MG/DL (70-100); HDL CHOLESTEROL 63 MG/DL (>40); LDL CHOLESTEROL 118 MG/DL (<100); MAGNESIUM LEVEL 2.3 MG/DL (1.8-2.4); MB/CK RELATIVE INDEX 2.04 (< OR =4); NON-HDL-C 152 MG/DL; POTASSIUM SERUM 4.7 MEQ/L (3.5-5.1); SODIUM LEVEL 139 MEQ/L (136-145); TOTAL PROTEIN 7.3 GM/DL (6.4-8.2); TRIGLYCERIDES LEVEL 171 MG/DL (<150); TROPONIN I < 0.02 NG/ML (< 0.10)
[2019-10-07 09:30] LABS: ERYTHROCYTE SEDIMENTATION RATE 7 mm/hr (0-20)
--- NOTE | 2019-10-07 11:19 | REP ---
BILATERAL LOWER EXTREMITY DUPLEX DOPPLER VENOUS ULTRASOUND: Real-time compression and duplex Doppler interrogation of bilateral lower extremity deep venous systems is performed. Diffuse occlusive thrombus is seen in the right common femoral and superficial femoral veins. There is not occlusive thrombus in the right popliteal vein. No deep vein thrombosis is seen in the left lower extremity with common femoral, superficial femoral and popliteal veins fully compressible. IMPRESSION: Diffuse occlusive deep vein thrombosis right common femoral vein and superficial femoral vein with nonocclusive thrombus in the right popliteal vein. Unreviewed
[2019-10-07 14:00] VITALS: BP 142/76
--- NOTE | 2019-10-07 16:12 | REP ---
New two views abdomen: 10/07/2019. Indication: IVC filter. Comparison: 12/03/2007. Findings: IVC filter is present adjacent to the L2 vertebral body. The patient is status post cholecystectomy. There is no organomegaly. No free intraperitoneal air is detected. Significant degenerative sequelae of the lumbar spine are noted. Impression: Cordis appearing IVC filter at the L2 level. Electronically Signed by Farrukh Rousseau DO 10/07/2019 04:03 P
--- NOTE | 2019-10-07 18:24 | IPN ---
DATE: 10/07/2019 Patient still complains of dyspnea on exertion, as well as some dizziness when he ambulated three times around the room. Afebrile. Still short of breath. No wheezing or rales. No cough or fever. Temperature 97.4, pulse 79, respiratory rate 17, blood pressure 142/76, 94% on room air. Generally, patient is awake, alert, oriented, providing much of the history. No conversational dyspnea, tracheal deviation, cyanosis, icterus. No use of respiratory accessory muscles. Able to complete sentences. No jugular venous distention (JVD) or thyromegaly. Lungs: Clear to auscultation. No wheezing or rales. Heart: S1, S2, sinus rhythm. Abdomen is soft, nontender, nondistended. Extremities: Trace to 1+ pitting edema bilaterally. White count 7.9, hemoglobin 14, hematocrit 44, platelet count 151. Sodium 139, potassium 4.7, chloride 106, bicarbonate 25, BUN 18, creatinine 1.36, glucose of 169, triglycerides 171, LDL 215, lactic acid 1.7, troponin less than 0.02. CT chest: Nonocclusive single pulmonary embolism (PE) in pulmonary artery branch posteriorly supplying posterior segment of the right lower lobe. No other PE seen. Diffuse atelectasis and slightly displaced fracture of the left lateral 5th rib. Venous Doppler bilateral lower extremities: Diffuse occlusive deep vein thrombosis (DVT) right common femoral vein, superficial femoral vein and non-occlusive thrombus in the right popliteal vein. ASSESSMENT AND PLAN: This is a 79-year-old male with a history of pulmonary embolism, deep vein thrombosis, inferior vena cava (IVC) filter, anticoagulated with warfarin for several years, stopped the past 3 years, now presents with acute PE and diffuse occlusive DVT in the right common femoral and superficial femoral vein. Resume back on Xarelto today. IMPRESSION: 1. Right common femoral vein diffuse occlusive DVT and superficial femoral vein with nonocclusive thrombus in the right popliteal vein/single pulmonary embolism in a pulmonary artery branch posteriorly supplying posterior segment of the right lower lobe with history of IVC filter, was not on anticoagulation for the past 3 years. The patient is currently restarted back on Eliquis twice a day, renally dosed. Will consult with Dr. Varner if the patient's filter needs to be replaced. 2. Acute respiratory distress. Patient's oxygen saturation is 97-99% on room air, but says that he does feel dyspneic with exertion, especially with complaints of dizziness when he returns after walking around three times on the room and feels like he is going to pass out. Patient has clear lungs. No signs of fluid overload. CT chest has no pulmonary edema, effusion or infiltrates, but has a single non-occlusive pulmonary embolism. Patient has been started on Eliquis. Will obtain an echocardiogram to rule out severe pulmonary hypertension. He does have lower extremity edema with a blood clot, but we will need to rule out heart failure MTDD
[2019-10-07] MEDS: NAPROXEN 250 MG TAB PO PRN (18:51)
[2019-10-07] MEDS: LORATADINE 10 MG TAB PO SCH (20:04)
[2019-10-07] MEDS: CETIRIZINE (ZyrTEC) 10 MG TAB PO SCH (20:04)
[2019-10-07] MEDS ORDERED: NORTRIPTYLINE 25 MG CAP PO SCH (21:00)
--- NOTE | 2019-10-07 21:19 | ECGEPIP ---
[facility] - ED Test Date: 2019-10-06 Pat Name: LOVE ANG Department: Room: - Gender: Male Computer Graphic Designer: den : 1940 Requested By: Kayla Chao Order Number: [id number] Reading MD: Gianluca Armstrong Measurements Intervals [place] Rate: 94 P: 46 IN: 167 QRS: -36 QRSD: 88 T: 37 QT: 339 QTc: 425 Interpretive Statements SINUS RHYTHM POOR R WAVE PROGRESSION LEFT AXIS DEVIATION PATTERN CONSISTENT WITH PULMONARY DISEASE SIMILAR TO 09/01/18 Electronically Signed on 10-07-2019 21:19:10 EDT by Gianluca Armstrong
[2019-10-07 22:00] VITALS: BP 118/71
[2019-10-08 06:00] VITALS: BP 101/67
[2019-10-08] MEDS: APIXABAN 5 MG TAB (ELIQUIS) PO SCH ×2 (09:56→20:43)
[2019-10-08] MEDS: NAPROXEN 250 MG TAB PO PRN (09:56)
[2019-10-08 14:00] VITALS: BP 134/87
--- NOTE | 2019-10-08 19:54 | ECHO ---
DATE OF PROCEDURE: 10/07/2019 DATE OF : 1940 AGE: 79 REFERRING PROVIDER: Dr. Nay Gonzalez PATIENT LOCATION: Room 4224 REASON FOR THE STUDY: Shortness of breath. 2D COMMENTS: 1. Technically limited study due to poor acoustic window. The endocardium was not well visualized for measurements. Only limited subcostal and parasternal views available. 2. The left ventricular size appeared to be normal in limited views and left ventricular systolic function also seems to be normal, estimated at 50-55%. 3. The left atrium appeared to be normal in limited views. 4. The right atrium and the right ventricle appear to be mildly enlarged in limited views. The right ventricular free wall seems to be samantha. 5. The atrial septum appeared to be normal without evidence of defect or shunt. 6. The aortic root was not well visualized. 7. Trace to small pericardial effusion noted, no evidence of cardiac tamponade. 8. The aortic valve appeared to be normal in limited views. The mitral valve and the tricuspid valve also appear to be normal. The pulmonic valve and proximal pulmonary artery branches were not well visualized. 9. The inferior vena cava was not visualized. DOPPLER: No significant valvular abnormalities detected. Abnormal relaxation pattern was noted across the mitral valve annulus and mitral valve leaflets consistent with features of grade 1 left ventricular diastolic dysfunction. IMPRESSION: 1. Technically very limited study due to poor acoustic window. 2. Low normal global left ventricular systolic function. There are features of grade 1 left ventricular diastolic dysfunction. 3. Trace to small pericardial effusion. 4. The right heart chambers appear to be mildly enlarged in limited views. 5. No significant valvular abnormalities detected.
[2019-10-08] MEDS: LORATADINE 10 MG TAB PO SCH (20:43)
[2019-10-08] MEDS: CETIRIZINE (ZyrTEC) 10 MG TAB PO SCH (20:44)
[2019-10-08 22:00] VITALS: BP 131/84
[2019-10-09 06:00] VITALS: BP 101/68
[2019-10-09] MEDS: APIXABAN 5 MG TAB (ELIQUIS) PO SCH (08:41)
--- NOTE | 2019-10-10 17:43 | DSES ---
DATE OF ADMISSION: 10/06/2019 DATE OF DISCHARGE: 10/09/2019 PRIMARY DISCHARGE DIAGNOSES: 1. Nonocclusive single pulmonary embolism in a pulmonary artery branch posteriorly. 2. Fibroatelectasis. 3. Fracture to left fifth rib. 4. Diffuse occlusive deep vein thrombosis (DVT) of right common femoral vein and superficial femoral vein with nonocclusive thrombus in the right popliteal vein. DISCHARGE MEDICATIONS: - Eliquis 5 mg twice a day - omeprazole 20 mg daily - levocetirizine 5 mg at bedtime - magnesium oxide 250 at bedtime - nortriptyline 25 every two days HOSPITAL COURSE: This is a 79-year-old male with prior history of deep vein thrombosis (DVT), pulmonary embolism (PE) requiring inferior vena cava (IVC) filter, had been on warfarin but stopped, for the past three years had been off anticoagulation, presented with acute PE and diffuse occlusive DVT in the right common femoral, superficial femoral vein. The patient was placed back on Xarelto 5 mg twice a day. Venous Doppler showed lower extremity DVT on the right. The patient's brain natriuretic peptide (BNP) was 18. No pulmonary edema was noted. COVID was negative. Blood cultures negative. Urine culture was negative. The patient was afebrile. No cough. He passed a home safety evaluation and subsequently discharged home. PHYSICAL EXAMINATION ON DISCHARGE: Temperature 98.3, pulse 68, respiratory rate 20, blood pressure 101/67 to 134/87, 99% on room air. GENERAL: Very hard of hearing. No pallor. No icterus. No cyanosis. No use of respiratory accessory muscles. No jugular venous distention (JVD) or thyromegaly. No cervical lymphadenopathy. Lungs are clear to auscultation. No wheezing or rales. HEART: S1, S2, sinus rhythm. Abdomen is soft, nontender, nondistended. Positive bowel sounds. EXTREMITIES: 1+ pitting edema of bilateral lower extremities. LABORATORY DATA ON DISCHARGE: White count 7.9, hemoglobin 14, hematocrit 44, platelet count 151. Sodium 139, potassium 4.7, chloride 106, bicarbonate 25, BUN 18, creatinine 1.36, glucose of 169, calcium of 8.7, lactic acid 1.7. MICROBIOLOGY: Respiratory panel, COVID negative. Blood culture negative after 48 hours. Urine culture is negative. IMAGING STUDIES: Single pulmonary embolism on CT chest. Right lower extremity DVT on venous ultrasound. TIME SPENT ON DISCHARGE: 30 minutes. SHELTOND
== END 2019-10-09 11:51 | disposition home or self-care (01) | DRG 299 ==
LOC: EDBD 11:01 → M ED 11:01 → M ED INP 16:06 → ENRESERV 16:30 → M MSPAV 17:40
PROVIDERS: ADMIT Internal Medicine; ATTEND General Practice
DX: I82.411 Acute embolism and thrombosis of right femoral vein (principal); I26.99 Other pulmonary embolism without acute cor pulmonale; E87.2 Acidosis; S22.31XA Fracture of one rib, right side, initial encounter for closed fracture; I82.431 Acute embolism and thrombosis of right popliteal vein; E78.5 Hyperlipidemia, unspecified; W05.1XXA Fall from non-moving nonmotorized scooter, initial encounter; Y92.9 Unspecified place or not applicable; I27.20 Pulmonary hypertension, unspecified; M88.9 Osteitis deformans of unspecified bone

== ENCOUNTER → 2019-10-12 | Outpatient (POV) | payer MEDICARE, OTHER ==
[~2019-10-12] MED LIST changes: +ELIQ5TAB PO; +LEVOTAB10 PO; +MAGN250T7 PO; +PRIL20TA2 PO
--- NOTE | 2019-10-13 10:39 | IRCOV ---
[facility] IR Consult Office Visit IR Consult Office Visit DATE: Oct 12, 2019 Consent was given by patient for this telephone call. Length of call was 30 minutes. REASON FOR CONSULTATION/CHIEF COMPLAINT: PE despite IVC filter HISTORY OF PRESENT ILLNESS: 79 year old male with history of large pulmonary thrombus in 2006 which resulted in hospital admission and IVC filter placement. He was on Coumadin for 5 years and then taken off it. Few weeks ago he took a long car journey from [place] to the [facility] with breaks and soon after presented to the hospital, post syncope. Ultrasound showed right leg DVT and CT PE protocol showed small PE right segmental branch. Patient is now on Eliquis. Patient states right lower extremity is swollen. No chest pain. He complains of 2 years of worsening shortness of breath and fatigue. ALLERGIES: Please see below. HOME MEDICATIONS: Please see below. PAST MEDICAL HISTORY: 1. Neuropathy 2. Prostate Hypertrophy 3. Dyslipidemia 4. Paget's Disease 5. Lumbar Spinal Stenosis 6. History of Left leg DVT and subsequent PE 7. Premalignant polyps resulting in partial colon resection PAST SURGICAL HISTORY: 1. Herniorrhaphy 2. Pilonidal Cyst Surgery 3. Deviated Septum Repair 4. Left Shoulder Repair 5. TURP 6. Right Hemicolectomy in 2013 7. Left Total Knee Replacement 8. Shavon Filter Placement in 2006 FAMILY HISTORY: non contributory SOCIAL HISTORY: non smoker,. occasional alcohol. Denies drugs. REVIEW OF SYSTEMS: Otherwise negative No video on patient side LABORATORY DATA: 10/07/19 Hgb 14.3 HCT 44.9 WBC 7.9 PLT 151 Na 139 K 4.7 BUN 18 Creatinine 1.36 BNP 18 LDL 118 Imaging: I personally reviewed the US lower extremity from 10/07/19. There is occlusive thrombus in the right common femoral vein extending centrally, out of view. There is thrombus in the femoral vein. I personally reviewed the CT PE study from 10/16/19. Small filling defect in subsegmental right pulmonary artery branch. I personally reviewed the abdomen Xray from 10/07/19. There is a TrapEase style filter in place. I reviewed the ECHO report from 10/07/19. It does not report the pulmonary pressure however, does comment on right ventricular dilation. ASSESSMENT/PLAN: 79 male with history of recurrent DVT and PE occurring off anticoagulation with a [address]. Extensive right lower extremity DVT extending centrally with limb swelling. I think he would benefit from mechanical thrombectomy. At the same session we can perform central mukesh ogram and evaluate his IVC for patency and his IVC filter. If indeed he is shooting small clots to the pulmonaries over the past few years, he likely has pulmonary hypertension and this may explain his more chronic symptoms. Therefore, a direct pulmonary artery pressure will be obtained as part of this procedure. We discussed the risks and benefits of the procedure and patient woul d like to proceed. We will schedule the patient for the procedure. I spent 30minutes in consultation with the patient. Thank you for this referral. CC PCP Allergies Coded Allergies: celecoxib (Verified Allergy, Intermediate, unsure, 09/01/18) tamsulosin (Verified Allergy, Intermediate, unsure, 09/01/18) Home Medications Scheduled Apixaban (Eliquis), 5 MG PO BID Levocetirizine Dihydrochloride (Levocetirizine Dihydrochloride), 5 MG PO QHS, (Reported) Magnesium Oxide (Magnesium), 250 MG PO QHS, (Reported) Nortriptyline HCl (Nortriptyline HCl), 25 MG PO Q2D, (Reported) Omeprazole Magnesium (Prilosec Otc), 20 MG PO DAILY Discontinued Medications Aspirin (Aspir 81), 81 MG PO QHS, (Reported) Methylprednisolone (Medrol), 1 DP PO ASDIRECTED Discontinued Reason: Pt states not taking Multivitamin (Multivitamins), 1 CAP PO DAILY, (Reported) Discontinued Reason: Pt states not taking TEOFILO MCKEON MD Oct 13, 2019 10:39
== END ==
LOC: M TMIRPOV 07:54
PROVIDERS: ATTEND Radiology Diagnostic Radiology
DX: I82.411 Acute embolism and thrombosis of right femoral vein (principal); I82.290 Acute embolism and thrombosis of other thoracic veins; Z95.828 Presence of other vascular implants and grafts; Z79.899 Other long term (current) drug therapy

== ENCOUNTER → 2019-10-15 | Outpatient (CLI) | payer MEDICARE, OTHER ==
[~2019-10-15] MED LIST changes: +COUM1TAB17 PO; +FURO40TA2 PO
[2019-10-15 14:22] LABS: TOTAL PROTEIN 7.2 GM/DL (6.4-8.2)
[2019-10-15 17:34] LABS: VITAMIN B12 LEVEL 425 PG/ML
[2019-10-15 17:35] LABS: FOLATE 12.7 NG/ML
[2019-10-19 10:06] LABS: ALBUMIN 4.14 GM/DL (3.29-5.55); ALBUMIN % 57.5 % (55.8-66.1); ALPHA-1-GLOBULIN % 4.9 % (2.9-4.9); ALPHA-1-GLOBULINS 0.35 GM/DL (0.17-0.41); ALPHA-2-GLOBULINS 0.81 GM/DL (0.42-0.99); ALPHA-2-GLOBULINS % 11.3 % (7.1-11.8); BETA-1-GLOBULINS 0.45 GM/DL (0.28-0.60); BETA-1-GLOBULINS % 6.2 % (4.7-7.2); BETA-2-GLOBULINS % 5.6 % (3.2-6.5); GAMMA GLOBULIN % 14.5 % (11.1-18.8); GAMMA GLOBULINS 1.04 GM/DL (0.65-1.58)
[2019-10-20 12:13] LABS: VITAMIN B1 LEVEL WHOLE BLOOD 125.4 nmol/L (66.5-200.0); VITAMIN B6,PYRIDOXAL PHOSPHATE 7.7 ug/L (5.3-46.7); VITAMIN E(ALPHA TOCOPHEROL) 10.6 mg/L (9.0-29.0); VITAMIN E(GAMMA TOCOPHEROL) 2.6 mg/L (0.5-4.9)
== END ==
LOC: M LABDRWAD 11:20
PROVIDERS: ATTEND Psychiatry & Neurology Neurology
DX: E83.01 Wilson's disease (principal); G62.9 Polyneuropathy, unspecified; E51.9 Thiamine deficiency, unspecified; E53.8 Deficiency of other specified B group vitamins

== ENCOUNTER → 2019-10-18 | Outpatient (CLI) | payer MEDICARE, OTHER ==
[~2019-10-18] MED LIST changes: +ISOVUE-300 61% 50ML VIAL As Ordered ONE; +LIDOCAINE 1% MDV 20ML VIAL As Ordered ONE; +MIDAZOLAM INJ 2MG/2ML VIAL (J2250 PER 1MG) As Ordered ONE; +diphenhydrAMINE 50MG/ML VIAL (J1200) As Ordered ONE; +fentaNYL 100 MCG/2 ML INJECTION (J3010) As Ordered ONE
--- NOTE | 2019-10-18 11:28 | IRHP ---
[facility] IR Pre-Procedure H & P General Date of Service: Oct 18, 2019 Procedure: Same Day Surgery Interval History and Physical I have seen the patient and reviewed last H & P performed within 30 days. There is no significant interval change. History of Present Illness Chief Complaint The patient is a 79-year-old male admitted with a reason for visit of Dvt/Pe/Pulmonary Htn. PRE-PROCEDURE DIAGNOSIS: DVT HEART: normal rate. LUNGS: normal breathing at rest. ASA Classification ASA Classification: III-Severe systemic dis. Mallampati Score: II NPO: Yes Problems with prior sedation: No Obstructive Sleep Apnea: No Plan moderate sedation Allergies Coded Allergies: celecoxib (Verified Allergy, Intermediate, unsure, 09/01/18) tamsulosin (Verified Allergy, Intermediate, unsure, 09/01/18) Home Medications Scheduled Apixaban (Eliquis), 5 MG PO BID Furosemide (Furosemide), 40 MG PO DAILY, (Reported) Magnesium Oxide (Magnesium), 250 MG PO QHS, (Reported) Nortriptyline HCl (Nortriptyline HCl), 25 MG PO Q2D, (Reported) Omeprazole Magnesium (Prilosec Otc), 20 MG PO DAILY Discontinued Medications Levocetirizine Dihydrochloride (Levocetirizine Dihydrochloride), 5 MG PO QHS, (Reported) Discontinued Reason: Pt states not taking VS, I&O, 24H, Fishbone Vital Signs/I&O Vital Signs Date Time Temp Pulse Resp B/P (MAP) Pulse Ox O2 Delivery O2 Flow Rate FiO2 10/18/19 11:24 72 18 99 Nasal Cannula 10/18/19 11:03 2 10/18/19 08:11 97.1 TEOFILO MCKEON MD Oct 18, 2019 11:28
--- NOTE | 2019-10-18 11:32 | POST-OPPD ---
Postoperative Procedure Note Date Of Procedure: Oct 18, 2019 Time Of Procedure: 11:28 PREOPERATIVE DIAGNOSIS: DVT POSTOPERATIVE DIAGNOSIS: extensive iliac and IVC thrombus below and above TrapEase filter. FINDINGS: above PROCEDURE: mechanical thrombectomy from below of iliac and infra filter IVC. Patient to be brought back for above filter thrombectomy. SURGEON: Telly ESTIMATED BLOOD LOSS: 100 ml COMPLICATIONS: none POSTOPERATIVE CONDITION: stable TEOFILO MCKEON MD Oct 18, 2019 11:32
[2019-10-18 13:52] VITALS: BP 128/66
--- NOTE | 2019-10-21 11:52 | REP ---
IR Right leg and central venography. IR Moderate sedation. IR Ultrasound guided right popliteal vein access. Clinical information: Right leg DVT, swelling and pain. PE despite filter placed in 2006. Chronic shortness of breath. Physician: Dr. Varner. Procedure: The patient was advised of the benefits, risks and alternatives of the procedure and informed consent was obtained. The time-out was performed with verification of the patient's name MRN, site of procedure and type of procedure to be performed. The patient was positioned in the prone position on the angiographic table. The site was prepped and draped in the usual sterile fashion. Moderate sedation was performed by the physician including the presence of an independent trained observer who assisted in monitoring the patient's level of consciousness and physiologic status. Following the administration of fentanyl and Versed , the physician spent 180 minutes of continuous face to face time with the patient. A supervisor accounting clerks radiograph reveals a permanent TrapEase style filter at L1-L2. Ultrasound of the right popliteal fossa demonstrates a patent and compressible right popliteal vein. A micropuncture needle was used under ultrasound guidance to access the right popliteal vein. An 018 wire was advanced into the right femoral vein and the micropuncture needle was exchanged for a micro sheath. The wire was removed. A right leg venogram was performed from this location and this demonstrates irregular flow in the right femoral vein with filling of collaterals. An 035 wire was advanced through the micro sheath under fluoroscopy guidance into the right external iliac vein. The sheath was removed over the wire and exchanged for an 8-Burkinan vascular sheath. A glide cath was advanced over the Glidewire under fluoroscopy guidance and used to catheterize the right common iliac vein. A venogram was performed and this demonstrates large filling defects in the right common iliac vein, inferior vena cava, within the IVC filter and beyond it. The wire in conjunction with the catheter was used under fluoroscopy guidance to catheterize the main pulmonary artery. An angiogram was performed and this demonstrates patent main, right and left pulmonary arteries. The pulmonary artery pressure was obtained at 25 mmHg. An 8-Burkinan thrombectomy device was then advanced over the wire under fluoroscopy guidance into the inferior vena cava, and positioned below the IVC filter. The thrombectomy device was then used to perform mechanical aspiration thrombectomy in the infra filter inferior vena cava. Thrombectomy was continued down into the right common iliac vein, external iliac vein and femoral vein. The thrombectomy catheter was then removed over the wire. The glidecath was re-advanced over the wire under fluoroscopy guidance into the infra filter inferior vena cava and a pullback venogram was performed. This demonstrates improved flow in the inferior vena cava and right common iliac vein. There is persistent thrombus within the filter and on top of the filter. The catheter and sheath were removed, pressure held and hemostasis achieved. A sterile dressing was applied to the site. The patient tolerated the procedure well and was returned to PRU in stable condition. EBL: Less than 5 ml. Complications: None. Conclusion: 1. Venogram demonstrates extensive thrombus within the right external iliac, common iliac and inferior vena cava. There is thrombus below, within and above the permanent filter. There is flow beyond the filter to the heart. These findings are in keeping with the patient's symptoms for 2 years which are likely related to chronic pulmonary thromboembolic disease. 2. The patient's pulmonary artery pressure is elevated. 3. Successful aspiration mechanical thrombectomy from below the filter. The patient will be brought back for further mechanical thrombectomy from the top. At this time, systemic anticoagulation and mechanical debulking are best. Any attempts to remove the filter at present and place a new one, would likely result in saddle embolus. Thank you this referral. Electronically Signed by Maddi Varner MD 10/21/2019 11:50 A
== END ==
LOC: M IRPRO 07:58
PROVIDERS: ATTEND Radiology Diagnostic Radiology
DX: I74.5 Embolism and thrombosis of iliac artery (principal); R06.02 Shortness of breath; Z95.828 Presence of other vascular implants and grafts

== ENCOUNTER → 2019-10-28 | Outpatient (REF) | payer MEDICARE, OTHER ==
[~2019-10-28] MED LIST changes: -ASPI81TA85 PO; +ASPI81TA86 PO; +BISO5TAB14 PO; -ISOVUE-300 61% 50ML VIAL As Ordered ONE; -LIDOCAINE 1% MDV 20ML VIAL As Ordered ONE; +LYRI75CA PO; -MIDAZOLAM INJ 2MG/2ML VIAL (J2250 PER 1MG) As Ordered ONE; +WARF-23 PO; -diphenhydrAMINE 50MG/ML VIAL (J1200) As Ordered ONE; -fentaNYL 100 MCG/2 ML INJECTION (J3010) As Ordered ONE
[2019-10-28 19:05] LABS: AMORPHOUS SEDIMENT MODERATE (NEGATIVE); APPEARANCE, URINE TURBID (CLEAR); BACTERIA, URINE AUTO NEGATIVE (NEGATIVE); BILIRUBIN, URINE AUTO NEGATIVE (NEGATIVE); BLOOD, URINE BLOOD NEGATIVE (NEGATIVE); COLOR, URINE YELLOW (YELLOW); GLUCOSE, URINE (UA) AUTO NEGATIVE (NEGATIVE); KETONE, URINE AUTO NEGATIVE (NEGATIVE); LEUKOCYTE ESTERASE, URINE AUTO NEGATIVE (NEGATIVE); NITRITE, URINE AUTO NEGATIVE (NEGATIVE); PROTEIN, URINE AUTO NEGATIVE (NEGATIVE); RBC, URINE AUTO 0 /HPF (0-3); SPECIFIC GRAVITY URINE AUTO 1.021 (1.002-1.035); SQUAMOUS EPITHELIAL CELL UR AU 0 /HPF (0-6); UROBILINOGEN, URINE AUTO 0.2 mg/dL (0.0-2.0); WBC, URINE AUTO 4 /HPF (0-3)
== END ==
LOC: M SMT 17:16
PROVIDERS: ATTEND Nurse Practitioner Family
DX: R31.0 Gross hematuria (principal)
CPT/HCPCS: 81001; 87086; 88108; G0463

== ENCOUNTER → 2019-10-29 | Outpatient (REF) | payer MEDICARE, OTHER ==
[2019-10-29 16:45] LABS: INR 2.3; PROTHROMBIN TIME 25.1 SECONDS (11.8-14.0)
== END ==
LOC: M SFHCADAM 11:55
PROVIDERS: ATTEND Internal Medicine
DX: Z79.01 Long term (current) use of anticoagulants (principal)

== ENCOUNTER 2019-11-04 07:36 | Inpatient (IN) | payer MEDICARE, OTHER ==
[2019-11-04] VITALS (7 sets, daily range): BP systolic 91–137; BP diastolic 52–74
[~2019-11-04] VITALS: Ht 182.9 cm; Wt 100.0 kg
[~2019-11-04 07:36] MED LIST changes: +ISOVUE-300 61% 50ML VIAL As Ordered ONE; +LIDOCAINE 1% MDV 20ML VIAL As Ordered ONE; -LYRI75CA PO; +MIDAZOLAM INJ 2MG/2ML VIAL (J2250 PER 1MG) As Ordered ONE; +PROMETHAZINE INJ 25 MG/ML VIAL (J2550) As Ordered ONE; -WARF-23 PO; +diphenhydrAMINE 50MG/ML VIAL (J1200) As Ordered ONE; +fentaNYL 100 MCG/2 ML INJECTION (J3010) As Ordered ONE
[2019-11-04] MEDS ORDERED: HEPARIN 25,000 UNITS/250 ML D5W BAG (100 UNITS/ML) (J1644 PER 1000UNITS) As Ordered ONE (08:35)
[2019-11-04] MEDS: ALTEPLASE RECOMBINANT 10 MG in NS 1,000 ML IV SCH (09:00)
[2019-11-04] MEDS ORDERED: ALTEPLASE 2MG/2ML VIAL As Ordered ONE (09:38)
[2019-11-04] MEDS ORDERED: fentaNYL 100 MCG/2 ML INJECTION (J3010) As Ordered ONE (10:20)
[2019-11-04] MEDS ORDERED: MIDAZOLAM INJ 2MG/2ML VIAL (J2250 PER 1MG) As Ordered ONE (10:21)
--- NOTE | 2019-11-04 11:16 | IRHP ---
[facility] IR Pre-Procedure H & P General Date of Service: Nov 04, 2019 Procedure: Same Day Surgery Interval History and Physical I have seen the patient and reviewed last H & P performed within 30 days. There is no significant interval change. History of Present Illness Chief Complaint The patient is a 79-year-old male admitted with a reason for visit of Dvt/Pe/Pulmonary Htn. PRE-PROCEDURE DIAGNOSIS: HEART: . LUNGS: . ASA Classification ASA Classification: III-Severe systemic dis. Mallampati Score: II NPO: Yes Problems with prior sedation: No Obstructive Sleep Apnea: No Plan moderate sedation Allergies Coded Allergies: celecoxib (Verified Allergy, Intermediate, unsure, 09/01/18) tamsulosin (Verified Allergy, Intermediate, unsure, 09/01/18) Home Medications Scheduled Furosemide (Furosemide), 40 MG PO DAILY, (Reported) Magnesium Oxide (Magnesium), 250 MG PO QHS, (Reported) Nortriptyline HCl (Nortriptyline HCl), 25 MG PO Q2D, (Reported) Warfarin Sodium (Coumadin), 1 TAB PO DAILY Discontinued Medications Bisoprolol Fumarate (Bisoprolol Fumarate), 5 MG PO DAILY, (Reported) Discontinued Reason: Pt states not taking VS, I&O, 24H, Fishbone Vital Signs/I&O Vital Signs Date Time Temp Pulse Resp B/P (MAP) Pulse Ox O2 Delivery O2 Flow Rate FiO2 11/04/19 10:46 73 20 98 Room Air 11/04/19 10:41 2 11/04/19 07:49 97.7 TEOFILO MCKEON MD Nov 04, 2019 11:16
--- NOTE | 2019-11-04 11:18 | POST-OPPD ---
Postoperative Procedure Note Date Of Procedure: Nov 04, 2019 Time Of Procedure: 11:16 PREOPERATIVE DIAGNOSIS: dvt/ pe pulmonary HTn and recurrent PE due to thrombosed permanent filter and supra filter IVC clot. POSTOPERATIVE DIAGNOSIS: same FINDINGS: thrombosed filter and above filter PROCEDURE Lysis catheter placement through IVC filter for overnight clot lysis. SURGEON: Telly ANESTHESIA: mod sed ESTIMATED BLOOD LOSS: < 5 ml COMPLICATIONS: none POSTOPERATIVE CONDITION: stable TEOFILO MCKEON MD Nov 04, 2019 11:18
[2019-11-04 11:31] LABS: HEMATOCRIT 37.3 % (42.0-52.0); MEAN CORPUSCULAR HEMOGLOBIN 29.8 pg (27.0-33.0); MEAN CORPUSCULAR HGB CONC 32.2 g/dl (32.0-36.5); MEAN CORPUSCULAR VOLUME 92.6 fl (80.0-96.0); PLATELET COUNT, AUTOMATED 293 10^3/uL (150-450); RED BLOOD COUNT 4.03 10^6/uL (4.30-6.10); WHITE BLOOD COUNT 7.8 10^3/uL (4.0-10.0)
[2019-11-04] MEDS ORDERED: WARF-23 PO (12:01)
[2019-11-04] MEDS ORDERED: BISO5TAB14 PO (12:01)
[2019-11-04] MEDS ORDERED: HEPARIN DRIP 25,000 UNITS in IV 1 EA IV SCH ×3 (12:30→17:00)
[2019-11-04] MEDS ORDERED: DILUENT IV SCH ×2 (12:45→17:00)
[2019-11-04] MEDS ORDERED: HEPARIN DRIP IV SCH ×2 (12:45→17:00)
[2019-11-04] MEDS: NS 1,000 ML IV SCH ×2 (12:45→22:08)
[2019-11-04] MEDS: FUROSEMIDE 40 MG TAB PO SCH (13:38)
[2019-11-04] MEDS: BISOPROLOL FUM 2.5 MG PER 1/2TAB PO SCH (13:39)
[2019-11-04 13:45] LABS: PARTIAL THROMBOPLASTIN TIME 45.1 SECONDS (25.0-38.4)
[2019-11-04] MEDS ORDERED: HEPARIN SOD (PORCINE) 5000UNITS/ML 1ML VIAL/SYRINGE IV PRN (14:30)
--- NOTE | 2019-11-04 14:30 | HPEPDOC ---
General Date of Admission Nov 04, 2019 at 11:40 Date of Service: Nov 04, 2019 Chief Complaint The patient is a 79-year-old male admitted with a reason for visit of Dvt/Pe/Pulmonary Htn. 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 He complains of ernie soreness at the right neck at the site of yennifer thrombolysis catheter, dull aching about 3/10, no radiation. He also reposts ongoing dyspnea on exertion for several months. Home Medications Scheduled Bisoprolol Fumarate (Bisoprolol Fumarate) 5 Mg Tablet, 2.5 MG PO DAILY, (Reported) Furosemide (Furosemide) 40 Mg Tablet, 40 MG PO DAILY, (Reported) Magnesium Oxide (Magnesium) 250 Mg Tablet, 250 MG PO Q2D, (Reported) TAKES AT HS Nortriptyline HCl (Nortriptyline HCl) 25 Mg Cap, 25 MG PO Q2D, (Reported) TAKES AT HS Warfarin Sodium (Warfarin Sodium) 5 Mg Tablet, 5 MG PO QHS, (Reported) Allergies Coded Allergies: celecoxib (Verified Adverse Reaction, Intermediate, DIZZINESS, 11/04/19) Past Medical History Medical History PULMONARY HYPERTENSION FROM RECURRENT PEs due to thrombosed permanent filter and supra filter IVC clot. RECURRENT DVTs AND PULMONARY EMBOLISMS IVC THROMBOSIS BELOW AND ABOVE TRAPEASE FILTER HYPERCOAGULABLE STATE HEMATURIA IVC FILTER HYPERCHOLESTEROLEMIA IMPAIRED FASTING GLUCOSE ANXIETY AND DEPRESSION PAGET'S DISEASE OF BONE SENSORY PERIPHERAL NEUROPATHY LUMBAR SPINAL STENOSIS HISTORY OF ADENOMATOUS POLYP OF COLON Surgical History LEFT INGUINAL HERNIORRHAPHY AGE 16 PILONIDAL CYSTECTOMY AGE 26 DEVIATED SEPTUM REPAIR LEFT INGUINAL HERNIA REPAIR AND HAD TESTICULAR ATROPHY SUBSEQUENTLY 1975 PROSTHETIC SPACER LEFT ELBOW 1990 LEFT SHOULDER SURGERY 2002 FABIAN FILTER 2006 MICROWAVE PROSTATE PROCEDURE IN [place] 03/2007 COLONOSCOPY 04/2008 TURP 10/2013 COLONOSCOPY 11/2013 RIGHT HEMICOLECTOMY FOR ADENOMATOUS POLYP 12/2013 IVC FILTER PLACED 09/2019 Mechanical thrombectomy from below of iliac and infra filter IVC 10/18/19 Family History Father of stroke Mother in motor vehicle accident Two sisters from cancer, Another sister from COPD Another brother from COPD, another bladder had bladder cancer Social History * Smoker: former Smoker Alcohol: occationally Drugs: denies A-FIB/CHADSVASC A-FIB History Current/History of A-Fib/PAF?: No Current PO Anticoag Therapy: Yes Review of Systems Constitutional: Denies: Chills, Fever, Night Sweats Eyes: Denies: Pain, Vision change ENT: Denies: Head Aches, Ear Pain, Dysphagia Skin: Denies: Rash, Lesions, Breakdown Pulmonary: Reports: Dyspnea Cardiovascular: Reports: Edema, Lt Headedness; Denies: Chest Pain, Palpitations, Orthopnea Gastrointestinal: Denies: Nausea, Vomiting, Abdominal Pain, Diarrhea Genitourinary: Denies: Dysuria, Frequency, Incontinence, Retention Hematologic: Denies: Bruising, Bleeding Excessively Musculoskeletal: Denies: Neck Pain, Back Pain Physical Examination General Exam: Positive: Alert, Cooperative, No Acute Distress Eye Exam: Positive: PERRLA, Conjunctiva & lids normal, EOMI; Negative: Sclera icteric ENT Exam: Positive: Atraumatic, Mucous membr. moist/pink, Pharynx Normal Neck Exam: Positive: Supple; Negative: thyromegaly Chest Exam: Positive: Clear to auscultation, Normal air movement Heart Exam: Positive: Rate Normal, Regular Rhythm, Normal S1, Normal S2; Negative: Murmurs, Rubs Telemetry: Positive: No significant arrhythmia Abdomen Exam: Positive: Normal bowel sounds, Soft; Negative: Tenderness, Hepatospenomegaly Extremity Exam: Positive: Edema (1+ in left lower extremity), Normal pulses; Negative: Clubbing, Cyanosis Skin Exam: Positive: Nl turgor and temperature; Negative: Breakdown, Lesion Neuro Exam: Positive: Normal Speech, Strength at 5/5 X4 ext, Normal Tone Vital Signs Vital Signs Date Time Temp Pulse Resp B/P (MAP) Pulse Ox O2 Delivery O2 Flow Rate FiO2 11/04/19 13:39 81 137/74 11/04/19 11:30 18 97 Room Air 11/04/19 10:41 2 11/04/19 07:49 97.7 Laboratory Data Labs 24H Laboratory Tests 2 11/04/19 11:01: Nucleated Red Blood Cells % (auto) 0.0 11/04/19 11:15: Activated Partial Thromboplast Time 45.1H, Fibrinogen 558H CBC/BMP Laboratory Tests 11/04/19 11:01 Assessment/Plan 79 year old male with PMH of DVTs and Recurrent Pulmonary Embolisms, 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 continue TPA at current dosage stop if fibrinogen < 200 recheck fibrinogen in 4 hours and can start back TPA once fibrinogen above 200 Hold coumadin tonight. Call Dr Varner if any questions. Anxiety continue home meds. Hypokalemia replaced CKD stage 3 stable. DVTS and PEs hold coumadin tonight. Plan / VTE VTE Prophylaxis Ordered?: Yes GISSEL STANFORD MD Nov 04, 2019 14:30
[2019-11-04 15:50] LABS: CALCIUM LEVEL 8.5 MG/DL (8.8-10.2); CREATININE FOR GFR 1.46 MG/DL (0.70-1.30); GLOMERULAR FILTRATION RATE 49.7 (>42); POTASSIUM SERUM 3.2 MEQ/L (3.5-5.1)
[2019-11-04] MEDS ORDERED: POTASSIUM CHLORIDE 10 MEQ SR TABLET PO ONE (16:15)
[2019-11-04 17:46] LABS: PARTIAL THROMBOPLASTIN TIME 50.7 SECONDS (25.0-38.4)
[2019-11-04] MEDS: NORTRIPTYLINE 25 MG CAP PO SCH ×2 (20:17→21:00)
[2019-11-04 23:11] LABS: PARTIAL THROMBOPLASTIN TIME 52.5 SECONDS (25.0-38.4)
[2019-11-05] VITALS: BP 102/58
[2019-11-05] MEDS ORDERED: ACETAMINOPHEN 650MG ER TAB (TYLENOL ARTHRITIS) PO PRN (00:45)
[2019-11-05] MEDS ORDERED: ACETAMINOPHEN 650MG ER TAB (TYLENOL ARTHRITIS) As Ordered ONE (01:01)
[2019-11-05 02:00] VITALS: BP_SYST 86; BP_SYST 99; BP_DIAS 52; BP_DIAS 56
[2019-11-05 04:00] VITALS: BP 96/57
[2019-11-05 05:29] LABS: BASO % 0.5 % (0.0-1.0); EOS # 0.3 10^3/uL (0.0-0.5); EOS % 4.8 % (0.0-3.0); HEMATOCRIT 35.2 % (42.0-52.0); LYMPH # 1.1 10^3/uL (1.5-5.0); LYMPH % 16.2 % (24.0-44.0); MEAN CORPUSCULAR HEMOGLOBIN 29.5 pg (27.0-33.0); MEAN CORPUSCULAR HGB CONC 31.3 g/dl (32.0-36.5); MEAN CORPUSCULAR VOLUME 94.4 fl (80.0-96.0); MONO # 0.4 10^3/uL (0.0-0.8); MONO % 6.2 % (0.0-5.0); NEUTROPHILS # 4.7 10^3/uL (1.5-8.5); NEUTROPHILS % 71.2 % (36.0-66.0); PLATELET COUNT, AUTOMATED 239 10^3/uL (150-450); RED BLOOD COUNT 3.73 10^6/uL (4.30-6.10); WHITE BLOOD COUNT 6.6 10^3/uL (4.0-10.0)
[2019-11-05 05:43] LABS: PARTIAL THROMBOPLASTIN TIME 57.2 SECONDS (25.0-38.4)
[2019-11-05 06:00] VITALS: BP 104/56
[2019-11-05 06:04] LABS: CALCIUM LEVEL 8.1 MG/DL (8.8-10.2); CREATININE FOR GFR 1.52 MG/DL (0.70-1.30); GLOMERULAR FILTRATION RATE 47.5 (>42); POTASSIUM SERUM 3.9 MEQ/L (3.5-5.1)
[2019-11-05] MEDS: ALTEPLASE RECOMBINANT 10 MG in NS 1,000 ML IV SCH (06:44)
[2019-11-05 07:28] VITALS: BP 101/59
[2019-11-05] MEDS ORDERED: NS 1,000 ML IV SCH (08:00)
[2019-11-05] MEDS: FUROSEMIDE 40 MG TAB PO SCH (08:14)
[2019-11-05] MEDS: BISOPROLOL FUM 2.5 MG PER 1/2TAB PO SCH (08:14)
[2019-11-05 11:08] LABS: HEMATOCRIT 40.7 % (42.0-52.0); HEMOGLOBIN 12.8 g/dl (13.5-17.5); MEAN CORPUSCULAR HEMOGLOBIN 29.4 pg (27.0-33.0); MEAN CORPUSCULAR HGB CONC 31.4 g/dl (32.0-36.5); MEAN CORPUSCULAR VOLUME 93.3 fl (80.0-96.0); PLATELET COUNT, AUTOMATED 289 10^3/uL (150-450); RED BLOOD COUNT 4.36 10^6/uL (4.30-6.10); WHITE BLOOD COUNT 6.5 10^3/uL (4.0-10.0)
[2019-11-05 11:24] LABS: INR 2.9; PROTHROMBIN TIME 30.2 SECONDS (11.8-14.0)
[2019-11-05 11:25] LABS: PARTIAL THROMBOPLASTIN TIME 48.9 SECONDS (25.0-38.4)
--- NOTE | 2019-11-05 13:18 | IRPN ---
[facility] IR Progress Note IR Progress Note DATE: Nov 05, 2019 FOLLOW-UP: Status post IVC thrombolysis over night with 0.5 MG/hour TPA o vernight. No hematuria, no bleeding no SOB. Patient doing well. ON EXAMINATION: Resting in bed. Alert oriented, off oxygen and talking in sentences. The right IJ sheath and the IVC infusion catheter was removed in it's entirety, hemostasis achieved and a sterile dressing was applied to the site. IMPRESSION: Status post IVC thrombolysis for clotted IVC and filter. Follow up in IR in 3 weeks. We will call the patient to give appointment. Restart Coumadin tonight. Rest of management per hospitalist. Thank you for helping take care of this patient. Allergies Coded Allergies: celecoxib (Verified Adverse Reaction, Intermediate, DIZZINESS, 11/04/19) Current Medications Current Medications Medications (Trade) Dose Ordered Sig/Edison Route PRN Reason Start Time Stop Time Status Last Admin Dose Admin Acetaminophen (Tylenol Arthritis Er) 1,300 mg Q12HP PRN PO PAIN 11/05/19 00:45 11/05/19 01:21 Alteplase, Recombinant 10 mg/ Sodium Chloride 1,010 ml @ 50 mls/hr [id number] IV 11/04/19 09:00 11/05/19 07:51 DC 11/05/19 06:44 Bisoprolol Fumarate (Zebeta) 2.5 mg DAILY PO 11/04/19 09:00 11/04/19 13:39 Furosemide (Lasix) 40 mg DAILY PO 11/04/19 09:00 11/05/19 08:14 Heparin Sodium (Porcine) (Heparin) ASDIRECTED PRN IV SEE LABEL COMMENTS 11/04/19 14:30 11/04/19 15:02 DC Heparin Sodium (Porcine) 10419 units/IV Miscellaneous Supplies 250 ml @ 0 mls/hr Q0M IV 11/04/19 14:30 11/04/19 16:45 DC Heparin Sodium (Porcine) 82540 units/IV Miscellaneous Supplies 250 ml @ 5 mls/hr DRIP IV 11/04/19 12:30 Cancel Heparin Sodium (Porcine) 78131 units/IV Miscellaneous Supplies 250 ml @ 5 mls/hr DRIP IV 11/04/19 17:00 Cancel Heparin Sodium (Porcine) 15904 units/IV Miscellaneous Supplies 250 ml @ 5 mls/hr Q24H IV 11/04/19 12:45 11/04/19 14:32 DC Heparin Sodium (Porcine) 75352 units/IV Miscellaneous Supplies 250 ml @ 5 mls/hr Q24H IV 11/04/19 17:00 11/05/19 11:10 DC Home Med (Med Rec Complete!) ASDIRECTED XX 11/04/19 12:15 11/04/19 12:05 DC Non-Formulary Medication (Heparin Iv Rate Change Documentation ml/ Hr) ASDIRECTED XX 11/04/19 14:30 11/04/19 16:45 DC Nortriptyline HCl (Pamelor) 25 mg Q2D@2100 PO 11/04/19 21:00 Sodium Chloride 1,000 ml @ 15 mls/hr Q24H IV 11/05/19 08:00 11/05/19 11:10 DC 11/05/19 08:14 Sodium Chloride 1,000 ml @ 75 mls/hr [id number] IV 11/04/19 12:45 11/05/19 08:31 DC 11/04/19 22:08 VS,Fishbone, I+O VS, Fishbone, I+O Laboratory Tests 11/04/19 15:13 11/05/19 05:13 11/05/19 10:55 Vital Signs Date Time Temp Pulse Resp B/P (MAP) Pulse Ox O2 Delivery O2 Flow Rate FiO2 11/05/19 11:03 77 20 96 Room Air 11/05/19 07:28 98.0 101/59 (73) 11/05/19 06:00 2.0 I&O- Last 24 Hours up to 6 AM 11/05/19 07:00 Intake Total 3178 ml Output Total 1600 ml Balance 1578 ml TEOFILO MCKEON MD Nov 05, 2019 13:18
--- NOTE | 2019-11-05 13:50 | DS.PDOC ---
Discharge Summary General Date of Admission Nov 04, 2019 at 11:40 Date of Discharge 11/05/19 Primary Care Physician: Royer Dunn Attending Physician: ALAN CORREA MD Specialist/Consultants Involve: TEOFILO MCKEON MD Discharge Summary PROCEDURES PERFORMED DURING STAY: Overnight clot lysis by interventional radiology ADMITTING/DISCHARGE DIAGNOSES: 1. 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 Anxiety 3. CKD stage 3 4. DVTS and PEs COMPLICATIONS/CHIEF COMPLAINT: Dvt/Pe/Pulmonary Htn. HISTORY OF PRESENT ILLNESS/HOSPITAL COURSE: This is a 79-year-old male with a past medical history of DVT/PEs, chronic IVC clot, pulmonary hypertension, CAD stage III, presents for clot lysis by depression radiology. The patient tolerated overnight clot lysis TPA by Dr. Downey,and notes improvement of his dyspnea. Patient denies any chest pain or palpitations. No nausea, vomiting, abdominal pain. Patient did not have a bleeding overnight. This morning patient was reevaluated by Dr. Downey, and the catheter was removed. I have spoken with Dr. Mckeon who recommends discharging the patient today and her office will call patient. She also recommended the patient continue 5 mg of Coumadin every night and for him to restart his Coumadin tonight. The patient is agreeable to plan. He will follow up closely with his PCP and Dr. Mckeon. DISCHARGE MEDICATIONS: Please see below. ALLERGIES: Please see below. PHYSICAL EXAMINATION ON DISCHARGE: VITAL SIGNS: Please see below. General: NAD resting comfortably in bed HEENT: MMM no JVD. No bleeding Cardiac RRR Pulm: CTA b/l Abd: Soft, NT/ND. +BS Ext; No edema/ cyanosis. Distal pulses intact. Cap refill <2sec. LABORATORY DATA: Please see below. PROGNOSIS: Fair ACTIVITY: As tolerated DIET: Low Na DISCHARGE PLAN: Home DISPOSITION: Home DISCHARGE INSTRUCTIONS: 1. F/u with PCP and Dr. Mckeon in 1-2 weeks. Return to ED if symptoms worsen. DISCHARGE CONDITION: Stable. TIME SPENT ON DISCHARGE: Greater than 32 minutes. Vital Signs/I&Os Vital Signs Date Time Temp Pulse Resp B/P (MAP) Pulse Ox O2 Delivery O2 Flow Rate FiO2 11/05/19 11:03 77 20 96 Room Air 11/05/19 07:28 98.0 101/59 (73) 11/05/19 06:00 2.0 I&O- Last 24 Hours up to 6 AM 11/05/19 06:00 Intake Total 3048 ml Output Total 1600 ml Balance 1448 ml Laboratory Data Labs 24H Laboratory Tests 2 11/04/19 15:13: Anion Gap 7L, Glomerular Filtration Rate 49.7, Calcium Level 8.5L 11/04/19 17:02: Activated Partial Thromboplast Time 50.7H, Fibrinogen 579H 11/04/19 22:50: Activated Partial Thromboplast Time 52.5H, Fibrinogen 511H 11/05/19 05:13: Anion Gap 8, Glomerular Filtration Rate 47.5, Calcium Level 8.1L, Activated Partial Thromboplast Time 57.2H, Fibrinogen 495H, Immature Granulocyte % (Auto) 1.1, Neutrophils (%) (Auto) 71.2H, Lymphocytes (%) (Auto) 16.2L, Monocytes (%) (Auto) 6.2H, Eosinophils (%) (Auto) 4.8H, Basophils (%) (Auto) 0.5, Neutrophils # (Auto) 4.7, Lymphocytes # (Auto) 1.1L, Monocytes # (Auto) 0.4, Eosinophils # (Auto) 0.3, Basophils # (Auto) 0.0, Nucleated Red Blood Cells % (auto) 0.0 11/05/19 10:55: Nucleated Red Blood Cells % (auto) 0.0, Prothrombin Time 30.2H, Prothromb Time International Ratio 2.90, Activated Partial Thromboplast Time 48.9H, Fibrinogen 528H CBC/BMP Laboratory Tests 11/04/19 15:13 11/05/19 05:13 11/05/19 10:55 Discharge Medications Scheduled Bisoprolol Fumarate (Bisoprolol Fumarate) 5 Mg Tablet, 2.5 MG PO DAILY, (Reported) Furosemide (Furosemide) 40 Mg Tablet, 40 MG PO DAILY, (Reported) Magnesium Oxide (Magnesium) 250 Mg Tablet, 250 MG PO Q2D, (Reported) TAKES AT HS Nortriptyline HCl (Nortriptyline HCl) 25 Mg Cap, 25 MG PO Q2D, (Reported) TAKES AT HS Warfarin Sodium (Warfarin Sodium) 5 Mg Tablet, 5 MG PO QHS, (Reported) Allergies Coded Allergies: celecoxib (Verified Adverse Reaction, Intermediate, DIZZINESS, 11/04/19) ALAN CORREA MD Nov 05, 2019 13:50
--- NOTE | 2019-11-10 11:56 | REP ---
IR Central venography. IR Inferior vena cava thrombolysis. IR Moderate sedation. IR Ultrasound guided right internal jugular vein access. Clinical information: Chronic shortness of breath. New right lower extremity DVT. Thrombosed IVC filter and supra filter IVC clot with chronic pulmonary embolic disease. Physician: Dr. Varner. Procedure: The patient was advised of the benefits, risks and alternatives of the procedure and informed consent was obtained. The time-out was performed with verification of the patient's name MRN, site of procedure and type of procedure to be performed. The patient was positioned in the supine position on the angiographic table. The site was prepped and draped in the usual sterile fashion. Moderate sedation was performed by the physician including the presence of an independent trained observer who assisted in monitoring the patient's level of consciousness and physiologic status. Following the administration of fentanyl and Versed, the physician spent 90 minutes of continuous face to face time with the patient. A letter carrier radiograph reveals TrapEase style inferior vena cava filter in the same location. Ultrasound of the right neck demonstrates patent and compressible right internal jugular vein. A micropuncture needle was used under ultrasound guidance to access the right internal jugular vein. An 018 wire was advanced into the inferior vena cava and the micropuncture needle was exchanged for a micro sheath. An 035 wire was advanced through the micro sheath under fluoroscopy guidance into the inferior vena cava. The micro sheath was exchanged over the wire for a 6-English vascular sheath. A 5-English pigtail catheter was advanced over the wire under fluoroscopy guidance into the supra filter inferior vena cava. A venogram was performed and this demonstrates flow in the supra filter inferior vena cava with reflux into the bilateral renal veins. Filling defects on top of the filter. The pigtail catheter in conjunction with a wire was used to catheterize through the filter into a peripheral vein. A venogram was performed and this demonstrates catheterization of a collateral vein. There is filling defect within the filter and sitting on top of the filter, in keeping with thrombus. 2 mg of TPA was administered directly inside the filter. After 30 minutes, contrast injection demonstrated persistent intra and and supra filter thrombus. A 5-English infusion catheter was then advanced over the wire under fluoroscopy guidance, through the filter and positioned to cover the supra, intra and infra filter areas. The catheter was connected to TPA to run at 0.5 mg per hour overnight. The side arm of the sheath was connected to heparin infusion to run at 500 units per hour. The patient tolerated the procedure well and was transferred to ICU in stable condition, for overnight thrombolysis. EBL: Less than 5 ml. Complications: None. Impression: 1. Retrograde inferior vena cavagram from right IJ access demonstrates persistent thrombus within the filter and in the supra filter inferior vena cava. 2. Successful catheter placement for overnight thrombolysis. The catheter was removed the next day. The patient suffered no shortness of breath, tachycardia or bleeding during overnight thrombolysis. The patient was discharged in stable condition. Patient to continue on Coumadin . The patient will be brought back for repeat venogram in 1 month to evaluate for any residual significant IVC thrombus. Filter removal will be a discussion for the future. Thank you this referral. Cc Patient's PCP Electronically Signed by Maddi Varner MD 11/10/2019 11:54 A
[2019-12-30] MEDS ORDERED: LYRI75CA PO (12:18)
== END 2019-11-05 14:10 | disposition home or self-care (01) | DRG 254 ==
LOC: M IRPRO 07:36 → M ICU 11:40
PROVIDERS: ADMIT Internal Medicine Nephrology; ATTEND Internal Medicine
PROC: 05CM3ZZ Extirpation of Matter from Right Internal Jugular Vein, Percutaneous Approach (ICD-10-PCS; principal; 2019-11-04 08:30)
DX: I82.221 Chronic embolism and thrombosis of inferior vena cava (principal); F41.9 Anxiety disorder, unspecified; N18.3 Chronic kidney disease, stage 3 (moderate); I27.20 Pulmonary hypertension, unspecified; I25.10 Atherosclerotic heart disease of native coronary artery without angina pectoris; Z79.899 Other long term (current) drug therapy; Z88.8 Allergy status to other drugs, medicaments and biological substances; E78.00 Pure hypercholesterolemia, unspecified; E87.6 Hypokalemia

== ENCOUNTER → 2019-11-10 | Outpatient (REF) | payer MEDICARE, OTHER ==
[~2019-11-10] MED LIST changes: -ISOVUE-300 61% 50ML VIAL As Ordered ONE; -LIDOCAINE 1% MDV 20ML VIAL As Ordered ONE; +LYRI75CA PO; -MIDAZOLAM INJ 2MG/2ML VIAL (J2250 PER 1MG) As Ordered ONE; -PROMETHAZINE INJ 25 MG/ML VIAL (J2550) As Ordered ONE; +WARF-23 PO; -diphenhydrAMINE 50MG/ML VIAL (J1200) As Ordered ONE; -fentaNYL 100 MCG/2 ML INJECTION (J3010) As Ordered ONE
[2019-11-10 13:42] LABS: INR 3.04; PROTHROMBIN TIME 31.4 SECONDS (11.8-14.0)
== END ==
LOC: M SFHCADAM 08:42
PROVIDERS: ATTEND Internal Medicine
DX: Z51.81 Encounter for therapeutic drug level monitoring (principal); Z86.718 Personal history of other venous thrombosis and embolism

== ENCOUNTER → 2019-11-15 | Outpatient (REF) | payer MEDICARE, OTHER ==
[2019-11-15 13:33] LABS: INR 3.28; PROTHROMBIN TIME 33.4 SECONDS (11.8-14.0)
== END ==
LOC: M SFHCADAM 10:01
PROVIDERS: ATTEND Internal Medicine
DX: Z51.81 Encounter for therapeutic drug level monitoring (principal); Z86.718 Personal history of other venous thrombosis and embolism

== ENCOUNTER → 2019-11-17 | Outpatient (REF) | payer MEDICARE, OTHER ==
[2019-11-17 13:47] LABS: CALCIUM LEVEL 9.3 MG/DL (8.8-10.2); CREATININE FOR GFR 1.52 MG/DL (0.70-1.30); GLOMERULAR FILTRATION RATE 47.5 (>42); POTASSIUM SERUM 4.4 MEQ/L (3.5-5.1)
== END ==
LOC: M SMT 12:24 → M LABDRWAD 12:24
PROVIDERS: ATTEND Nurse Practitioner Family
DX: R31.0 Gross hematuria (principal)

== ENCOUNTER → 2019-11-24 | Outpatient (CLI) | payer MEDICARE, OTHER ==
--- NOTE | 2020-01-17 08:13 | REP ---
CT OF THE ABDOMEN AND PELVIS WITHOUT IV OR ORAL CONTRAST: HISTORY: Gross hematuria. COMPARISON: None. FINDINGS: Digital preliminary cutter and paster press clippings radiograph shows clips in the right upper quadrant. Bowel gas pattern is unremarkable. The lung bases are clear on axial CT images. The liver and the spleen are normal in size, homogeneous in texture. No adrenal abnormality is observed on either side. No abnormality is seen in the pancreas. The gallbladder is unremarkable on CT images. There is descending duodenal diverticulum. There are surgical clips anteriorly adjacent to the pancreas. An inferior vena cava filter is noted in place. There are low density areas in the left kidney consistent with cysts. The largest of these is an upper pole, well- circumcised cyst measuring 2.9 cm in greatest diameter. There is no evidence of intrarenal calculus. No mass lesion is observed. No hydronephrosis is seen. No retroperitoneal mass or adenopathy is seen. A normal caliber aorta is noted. The patient is status post right colon resection and anastomosis. No pelvic mass or adenopathy is seen. The prostate gland is somewhat prominent. The urinary bladder is intact. There is low density area within the common femoral vein on the left suggesting DVT. This may be old with old peripheral thrombus. IMPRESSION: There are 2 cysts in the left kidney. Postoperative changes are noted in the abdomen. Question DVT changes in the common femoral vein on the left. Vena cava filter in place. SHELTOND
== END ==
LOC: M RAD 14:27
PROVIDERS: ATTEND Nurse Practitioner Family
DX: R31.0 Gross hematuria (principal); N28.1 Cyst of kidney, acquired; Z95.828 Presence of other vascular implants and grafts

== ENCOUNTER → 2019-11-24 | Outpatient (REF) | payer MEDICARE, OTHER ==
[2019-12-20 09:01] LABS: INR 3.35; PROTHROMBIN TIME 34.7 SECONDS (11.8-14.0)
== END ==
LOC: M SFHCPLAZ 13:34
PROVIDERS: ATTEND Internal Medicine
DX: Z51.81 Encounter for therapeutic drug level monitoring (principal); Z79.01 Long term (current) use of anticoagulants

== ENCOUNTER → 2019-12-01 | Outpatient (REF) | payer MEDICARE, OTHER ==
[2019-12-30 23:21] LABS: INR 3.76
== END ==
LOC: M LABDRWAD 12:50
PROVIDERS: ATTEND Internal Medicine
DX: Z79.01 Long term (current) use of anticoagulants (principal)

== ENCOUNTER → 2019-12-25 | Outpatient (CLI) | payer MEDICARE, OTHER | LOC: M LABSMTC 11:21 | PROVIDERS: ATTEND Anesthesiology | DX: Z01.812 Encounter for preprocedural laboratory examination (principal); Z20.828 Contact with and (suspected) exposure to other viral communicable diseases | CPT/HCPCS: C9803; U0003 ==

== ENCOUNTER → 2019-12-27 | Outpatient (REF) | payer MEDICARE, OTHER ==
[2019-12-27 14:17] LABS: INR 1.8; PROTHROMBIN TIME 21.3 SECONDS (11.8-14.0)
== END ==
LOC: M LABDRWAD 13:08
PROVIDERS: ATTEND Internal Medicine
DX: Z79.01 Long term (current) use of anticoagulants (principal)

== ENCOUNTER → 2019-12-30 | Outpatient (CLI) | payer MEDICARE, OTHER ==
[~2019-12-30] MED LIST changes: +ISOVUE-300 61% 50ML VIAL As Ordered ONE; +LIDOCAINE 1% MDV 20ML VIAL As Ordered ONE; +LIDOCAINE 2% 100MG/5ML SDV (FOR ANES.) As Ordered ONE; +MIDAZOLAM INJ 2MG/2ML VIAL (J2250 PER 1MG) As Ordered ONE; +ePHEDrine SULFATE 25 MG/5 ML(5MG/ML) SYRINGE As Ordered ONE; +fentaNYL 100 MCG/2 ML INJECTION (J3010) As Ordered ONE; +propofoL 200 MG/20 ML VIAL As Ordered ONE
[2019-12-30 12:10] LABS: HEMATOCRIT 43.2 % (42.0-52.0); HEMOGLOBIN 13.6 g/dl (13.5-17.5); MEAN CORPUSCULAR HEMOGLOBIN 29.4 pg (27.0-33.0); MEAN CORPUSCULAR HGB CONC 31.5 g/dl (32.0-36.5); MEAN CORPUSCULAR VOLUME 93.3 fl (80.0-96.0); PLATELET COUNT, AUTOMATED 237 10^3/uL (150-450); RED BLOOD COUNT 4.63 10^6/uL (4.30-6.10); WHITE BLOOD COUNT 7.4 10^3/uL (4.0-10.0)
[2019-12-30 12:28] LABS: BILIRUBIN,TOTAL 0.5 MG/DL (0.2-1.0); CALCIUM LEVEL 9.3 MG/DL (8.8-10.2); CREATININE FOR GFR 1.66 MG/DL (0.70-1.30); GLOMERULAR FILTRATION RATE 42.9 (>42); POTASSIUM SERUM 3.8 MEQ/L (3.5-5.1); TOTAL PROTEIN 8.5 GM/DL (6.4-8.2)
--- NOTE | 2019-12-30 14:06 | POST-OPPD ---
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 PROCEDURE: Venogram SURGEON: Telly ANESTHESIA: MAC ESTIMATED BLOOD LOSS: < 5 ml COMPLICATIONS: none POSTOPERATIVE CONDITION: stable TEOFILO MCKEON MD Dec 30, 2019 14:06
[2019-12-30 17:22] VITALS: BP 121/65
--- NOTE | 2020-01-20 12:05 | POST-OPPD ---
Postoperative Procedure Note Date Of Procedure: Dec 30, 2019 Time Of Procedure: 16:00 Full note IR venogram IR ultrasound left groin IR ultrasound right groin IR ultrasound guided left common femoral vein access. IR ultrasound guided right common femoral vein access. Clinical Information:IVC and iliac thrombosis. Recurrent left lower extremity DVT, shortness of breath and pulmonary emboli. Trapeze filter in place > 10 yea rs. Physician: Dr. Varner. Procedure: The patient was advised of the benefits, risks, and alternatives of the procedure and informed consent was obtained. A time out was performed with verification of the patient's name, MRN, site of procedure, and type of procedure to be performed. The patient was positioned in the supine position on the angiographic table. The site was prepped and draped in the usual sterile fashion. Sedation was performed by the anesthesia team. A master [place] radiograph reveals a trapeze filter at L2. Preliminary ultrasound of the left groin demonstrates partially thrombosed, small, irregular left groin vein. Local anesthesia using lidocaine was administered. The vein was accessed under ultrasound guidance with a micropuncture kit. An 018 wire was advanced centrally. The needle was removed over the wire and a microsheath was advanced over the wire under fluoroscopy guidance. A venogram was performed from the left groin. This demonstrates no identifiable external iliac, common iliac or IVC. Numerous collaterals; cross pelvic and lumbar collaterals are seen. Ultrasound of the right groin demonstrates irregular right groin vein. The vein was accessed under ultrasound guidance. An 018 wire was advanced centrally and the needle was removed and exchange for micro-sheath. A venogram was performed through the right groin sheath. This demonstrates numerous collaterals; lumbar and cross pelvic. No external iliac, common iliac or IVC identified. Both accesses were removed, pressure held and hemostasis achieved. The patient tolerated the procedure well and was returned to the PRU in stable condition. EBL:Less than 5 mL Complications:None Conclusion: 1. 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 2. Numerous cross pelvic and lumbar collaterals are seen. 3. Patient will require IR guided complete percutaneous IVC and bilateral iliac reconstruction along with IVC filter removal. As long as the filter is in place, patient will continue to thrombose IVC. This procedure will require intravascular ultrasound guidance which we don't have. I will refer the patient to an expert center for IR IVC and bilateral iliac reconstruction. Thank you for this referral TEOFILO VARNER MD Jan 20, 2020 12:05
== END ==
LOC: M IRPRO 11:30
PROVIDERS: ATTEND Radiology Diagnostic Radiology
DX: T82.515A Breakdown (mechanical) of umbrella device, initial encounter (principal); I74.5 Embolism and thrombosis of iliac artery; X58.XXXA Exposure to other specified factors, initial encounter
CPT/HCPCS: 36012; 75822; 80053; 85027; C1769; C1894; J1644; J2250; J3010; Q9967

== ENCOUNTER → 2020-01-05 | Outpatient (REF) | payer MEDICARE, OTHER ==
[~2020-01-05] MED LIST changes: -ISOVUE-300 61% 50ML VIAL As Ordered ONE; -LIDOCAINE 1% MDV 20ML VIAL As Ordered ONE; -LIDOCAINE 2% 100MG/5ML SDV (FOR ANES.) As Ordered ONE; -MIDAZOLAM INJ 2MG/2ML VIAL (J2250 PER 1MG) As Ordered ONE; -ePHEDrine SULFATE 25 MG/5 ML(5MG/ML) SYRINGE As Ordered ONE; -fentaNYL 100 MCG/2 ML INJECTION (J3010) As Ordered ONE; -propofoL 200 MG/20 ML VIAL As Ordered ONE
[2020-01-05 13:20] LABS: INR 2.13; PROTHROMBIN TIME 24.3 SECONDS (11.8-14.0)
== END ==
LOC: M LABDRWAD 09:37
PROVIDERS: ATTEND Internal Medicine
DX: Z79.01 Long term (current) use of anticoagulants (principal)

== ENCOUNTER → 2020-01-18 | Outpatient (REF) | payer MEDICARE, OTHER ==
[2020-01-18 13:47] LABS: INR 3.17; PROTHROMBIN TIME 33.3 SECONDS (12.5-14.3)
== END ==
LOC: M LABDRWAD 12:24
PROVIDERS: ATTEND Internal Medicine
DX: Z79.01 Long term (current) use of anticoagulants (principal)

== ENCOUNTER → 2020-01-31 | Outpatient (REF) | payer MEDICARE, OTHER ==
[2020-01-31 14:20] LABS: INR 2.81; PROTHROMBIN TIME 30.2 SECONDS (12.5-14.3)
== END ==
LOC: M SFHCADAM 09:53
PROVIDERS: ATTEND Internal Medicine
DX: Z51.81 Encounter for therapeutic drug level monitoring (principal); Z86.718 Personal history of other venous thrombosis and embolism

== ENCOUNTER → 2020-02-15 | Outpatient (POV) | payer MEDICARE, OTHER ==
--- NOTE | 2020-02-16 10:42 | IRPN ---
[facility] IR Progress Note IR Progress Note DATE: Feb 15, 2020 Patient scheduled this telephone follow-up due to concerns. FOLLOW-UP: 79-year-old male with complete IVC and bi iliac occlusion and thrombosed trapeze filter, with increasing shortness of breath over 2 years. This is associated with mild underlying pulmonary hypertension and likely chronic pulmonary thromboemboli. Patient is on Coumadin and states his INR is greater than 2.5 now. He was contacted by [facility] for discussions regarding IVC and bi iliac reconstruction and filter removal. He has an appointment scheduled with [facility] for March at which time they will decide if he is appropriate for the procedure. Patient has seen by cardiology in the interim. I discussed that IVC bi iliac reconstruction and filter removal will be associated with its own set of risks and benefits and it is okay to wait until March to discuss these options. There has been no acute change in his situation and his breathing does vary day to day for the past 2 years. I will follow up with the patient and Carlos Mckeon after their telemedicine visit. In the interim, if there is any acute change in symptoms he should seek care at his nearest ER as expected. Allergies Coded Allergies: celecoxib (Verified Adverse Reaction, Intermediate, DIZZINESS, 11/04/19) TEOFILO MCKEON MD Feb 16, 2020 10:42
== END ==
LOC: M TMIRPOV 08:14
PROVIDERS: ATTEND Radiology Diagnostic Radiology
DX: T82.515A Breakdown (mechanical) of umbrella device, initial encounter (principal); X58.XXXA Exposure to other specified factors, initial encounter; Z79.01 Long term (current) use of anticoagulants

== ENCOUNTER → 2020-02-21 | Outpatient (REF) | payer MEDICARE, OTHER ==
[2020-02-21 13:25] LABS: PROTHROMBIN TIME 39.9 SECONDS (12.5-14.3)
== END ==
LOC: M SFHCADAM 08:28
PROVIDERS: ATTEND Internal Medicine
DX: Z51.81 Encounter for therapeutic drug level monitoring (principal)

== ENCOUNTER → 2020-03-06 | Outpatient (REF) | payer MEDICARE, OTHER ==
[2020-03-06 13:39] LABS: INR 2.48; PROTHROMBIN TIME 27.4 SECONDS (12.5-14.3)
== END ==
LOC: M SFHCADAM 08:39
PROVIDERS: ATTEND Internal Medicine
DX: Z51.81 Encounter for therapeutic drug level monitoring (principal); Z79.01 Long term (current) use of anticoagulants

== ENCOUNTER → 2020-03-20 | Outpatient (REF) | payer MEDICARE, OTHER ==
[2020-03-20 12:44] LABS: INR 2.35; PROTHROMBIN TIME 26.3 SECONDS (12.5-14.3)
== END ==
LOC: M SFHCADAM 09:38
PROVIDERS: ATTEND Internal Medicine
DX: Z51.81 Encounter for therapeutic drug level monitoring (principal)

== ENCOUNTER → 2020-04-11 | Outpatient (REF) | payer MEDICARE, OTHER ==
[2020-04-11 13:40] LABS: INR 3.3; PROTHROMBIN TIME 34.3 SECONDS (12.5-14.3)
== END ==
LOC: M SFHCADAM 09:53
PROVIDERS: ATTEND Internal Medicine
DX: Z51.81 Encounter for therapeutic drug level monitoring (principal)

== ENCOUNTER → 2020-04-25 | Outpatient (CLI) | payer MEDICARE, OTHER ==
[2020-04-25 10:06] LABS: BASO % 0.8 % (0.0-1.0); EOS # 0.2 10^3/uL (0.0-0.5); EOS % 3.2 % (0.0-3.0); HEMATOCRIT 48.4 % (42.0-52.0); HEMOGLOBIN 14.9 g/dl (13.5-17.5); LYMPH # 1.8 10^3/uL (1.5-5.0); MEAN CORPUSCULAR HEMOGLOBIN 28.4 pg (27.0-33.0); MEAN CORPUSCULAR HGB CONC 30.8 g/dl (32.0-36.5); MEAN CORPUSCULAR VOLUME 92.2 fl (80.0-96.0); MONO # 0.5 10^3/uL (0.0-0.8); MONO % 8.9 % (0.0-5.0); NEUTROPHILS # 2.8 10^3/uL (1.5-8.5); NEUTROPHILS % 52.5 % (36.0-66.0); PLATELET COUNT, AUTOMATED 206 10^3/uL (150-450); RED BLOOD COUNT 5.25 10^6/uL (4.30-6.10); WHITE BLOOD COUNT 5.3 10^3/uL (4.0-10.0)
[2020-04-25 10:39] LABS: CALCIUM LEVEL 9.1 MG/DL (8.8-10.2); CREATININE FOR GFR 1.77 MG/DL (0.70-1.30); GLOMERULAR FILTRATION RATE 39.7 (>42); POTASSIUM SERUM 4.3 MEQ/L (3.5-5.1)
[2020-04-25 11:40] LABS: INR 2.45; PROTHROMBIN TIME 27.1 SECONDS (12.5-14.3)
== END ==
LOC: M LAB 09:20
DX: I87.009 Postthrombotic syndrome without complications of unspecified extremity (principal); Z51.81 Encounter for therapeutic drug level monitoring; Z79.01 Long term (current) use of anticoagulants

== ENCOUNTER → 2020-04-25 | Outpatient (REF) | payer MEDICARE, OTHER ==
[2020-04-25 12:56] LABS: INR 2.48; PROTHROMBIN TIME 27.4 SECONDS (12.5-14.3)
== END ==
LOC: M SFHCADAM 08:25
PROVIDERS: ATTEND Internal Medicine
DX: Z51.81 Encounter for therapeutic drug level monitoring (principal); Z79.01 Long term (current) use of anticoagulants

== ENCOUNTER → 2020-05-23 | Outpatient (CLI) | payer MEDICARE, OTHER ==
[2020-05-23 11:24] LABS: BASO # 0.1 10^3/uL (0.0-0.2); BASO % 0.7 % (0.0-1.0); EOS # 0.1 10^3/uL (0.0-0.5); EOS % 1.7 % (0.0-3.0); HEMATOCRIT 45.4 % (42.0-52.0); HEMOGLOBIN 14.5 g/dl (13.5-17.5); LYMPH # 1.7 10^3/uL (1.5-5.0); LYMPH % 24.6 % (24.0-44.0); MEAN CORPUSCULAR HEMOGLOBIN 29.7 pg (27.0-33.0); MEAN CORPUSCULAR HGB CONC 31.9 g/dl (32.0-36.5); MONO # 0.6 10^3/uL (0.0-0.8); MONO % 8.2 % (0.0-5.0); NEUTROPHILS # 4.5 10^3/uL (1.5-8.5); NEUTROPHILS % 63.5 % (36.0-66.0); PLATELET COUNT, AUTOMATED 248 10^3/uL (150-450); RED BLOOD COUNT 4.88 10^6/uL (4.30-6.10)
[2020-05-23 11:48] LABS: CALCIUM LEVEL 9.7 MG/DL (8.8-10.2); CREATININE FOR GFR 1.63 MG/DL (0.70-1.30); GLOMERULAR FILTRATION RATE 43.7 (>42); POTASSIUM SERUM 4.6 MEQ/L (3.5-5.1)
== END ==
LOC: M LAB 10:20
PROVIDERS: ATTEND Internal Medicine
DX: R31.0 Gross hematuria (principal)

== ENCOUNTER → 2020-05-23 | Outpatient (CLI) | payer MEDICARE, OTHER ==
[~2020-05-23] MED LIST changes: +ISOVUE-370 76% 100ML VIAL As Ordered ONE
--- NOTE | 2020-05-23 12:38 | REP ---
INDICATION: VENOUS OCCLUSION, HEMATOMA, CTA . COMPARISON: Comparison CT study abdomen and pelvis November 24, 2019.. TECHNIQUE: Helical scanning is acquired following the intravenous injection of 100 mL of intravenous Isovue 370. FINDINGS: Preliminary digital wet process miller radiograph shows an unremarkable bowel gas pattern. The lung bases are clear on axial CT images. There is diffuse fatty infiltration of the liver. No focal hepatic lesion is seen. The spleen is unremarkable. Normal adrenal glands are observed bilaterally. There is a cyst in the upper pole left kidney measuring 3.0 cm which is unchanged. There is an anastomotic suture line in the right colon consistent with partial right colectomy and ileocolic anastomosis. There are scattered diverticular changes in the left colon without CT evidence of diverticulitis. Prostate enlargement is seen. There is opaque material in the dependent portion of the urinary bladder which could be hematoma or bladder mass lesion. This appears to be separate from the enlarged prostate. It is a new finding compared to the and November 24, 2019 study. There is a cave 0 bi iliac venous stent graft in place terminating distally in the external iliac veins and proximally in the inferior vena cava just below the intrahepatic segment and just above the level of the renal veins. In addition, a previously placed vena cava filter is seen displaced somewhat to the right by the caval stent graft. CT angiography protocol requested produces good opacification of the arterial tree. The celiac axis and superior mesenteric axis are patent. The right renal artery is duplicated and both are patent. The accessory lower pole branch is somewhat stenotic at its origin. Inferior mesenteric artery is patent. The infrarenal and suprarenal abdominal aorta are normal in caliber with some calcification. Common iliac arteries, external iliac and internal iliac arteries are patent bilaterally. CT acquisition is before expected venous opacification is achieved. Study is otherwise unremarkable. Small and large bowel loops are unremarkable. There is mild diastasis of the rectus abdominus muscles. IMPRESSION: 1. Status post caval bi iliac venous stent graft placement. The caval portion of the stent graft displaces a previously placed IVC filter. 2. Opaque material in the dependent portion of the urinary bladder, hematoma versus bladder mass. 3. Status post colon resection left colonic diverticulosis. 4. Small cyst upper pole left kidney. 5. Fatty infiltration of the liver. <Electronically signed by Bar Ramos > 05/23/20 [id number]
== END ==
LOC: M RAD 10:15
PROVIDERS: ATTEND Radiology Diagnostic Radiology
DX: I82.90 Acute embolism and thrombosis of unspecified vein (principal); N28.1 Cyst of kidney, acquired; K76.0 Fatty (change of) liver, not elsewhere classified
CPT/HCPCS: 36415; 74174; 80048; 85025; 86850; 86900; 86901; G0463; Q9967

== ENCOUNTER → 2020-05-23 | Outpatient (POV) | payer MEDICARE, OTHER ==
[~2020-05-23] MED LIST changes: -ISOVUE-370 76% 100ML VIAL As Ordered ONE
--- NOTE | 2020-05-25 10:44 | IRPN ---
[facility] IR Progress Note IR Progress Note DATE: May 23, 2020 Patient agreed to [id number]. I spent 30 minutes reviewing patient's records, imaging and talking to the patient. 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 Patient states that the morning after the procedure, he felt immense improvement in his energy and was able to walk blocks around the hospital. He noticed a marked improvement in his shortness of breath. He was discharged on daily Plavix and Lovenox twice a day. The last 3 days he noticed dark bloody hematuria with or without clots at times. He has been in contact with Dr Strong and they co jointly managed his Plavix and Lovenox. He stopped Lovenox 24 hours ago. He stopped the Plavix 48 hours ago. There is no resolution of the hematuria. He has been admitted to the hospital multiple times in the past due to hematuria. He is known to urology. He states he feels tired. He followed up with Dr. Patterson today. Labs: 05/23/2020 hemoglobin 14.5 hematocrit 45.4 WBC 7.0 platelets 248 sodium 141 potassium 4.6 BUN 23 creatinine 1.63 GFR 43.7 Imaging: I personally reviewed the CTA and CTV abdomen pelvis performed today. Bi iliac and IVC stents and excluded trapeze filter. As best I can tell on the venous phase, there is contrast within the stent. I don't see any hypodense clot within the IVC. Bilateral renal veins appear patent. IMPRESSION: 80-year-old male status post recent IVUS guided reconstruction and stenting of occluded bilateral iliac and IVC. Patient is known to urology and has suffered with past episodes of joe hematuria. PCP to fast track urology visit with cystoscopy and cautery if possible. It's a fine balance with the blood thinners to keep the stents open. I discussed with Dr. Strong and he suggested we might manage with Plavix for 1 week and no Lovenox. Once his hematuria clears he may be started on Eliquis. His hemoglobin at present is stable. Of course, if hematuria worsens, we would also have to stop Plavix. I suggested to the patient to start his Plavix tomorrow morning and continue for 1 week without any Lovenox. If the hematuria worsens we may have to stop his Plavix as well. I will follow him up in one week time. Patient to call me back if symptoms worsen. Cc Dr. Patterson Cc Dr. Strong. Allergies Coded Allergies: celecoxib (Verified Adverse Reaction, Intermediate, DIZZINESS, 11/04/19) TEOFILO MCKEON MD May 25, 2020 10:44
== END ==
LOC: M TMIRPOV 14:04
PROVIDERS: ATTEND Radiology Diagnostic Radiology
DX: Z48.812 Encounter for surgical aftercare following surgery on the circulatory system (principal); R31.9 Hematuria, unspecified; Z79.01 Long term (current) use of anticoagulants

== ENCOUNTER → 2020-05-30 | Outpatient (POV) | payer MEDICARE, OTHER ==
--- NOTE | 2020-06-01 14:20 | IRPN ---
[facility] IR Progress Note IR Progress Note DATE: May 30, 2020 Patient agreed to this telephone follow-up. I spent 10 minutes talking to the patient. FOLLOW-UP: 80-year-old male with bilateral iliac and IVC occlusion now status post venous reconstruction with stents. Patient was on Plavix and Lovenox but developed hematuria. Patient has chronic history hematuria. He was seen by urology today and had cystoscopy. He reports the bladder clots were removed but there was nothing in the bladder to cauterize. He was told that the hematuria comes from his prostate. He's had no further hematuria for the last few days. He's been on Plavix. IMPRESSION: 80-year-old male with bi iliac and IVC occlusion now status post bi iliac and IVC reconstruction with stents. His hematuria has now resolved. He's undergone cystoscopy with no areas in the bladder identified for cauterization. He will now resume his Lovenox as well as continue on the Plavix. Patient to call us or PCP if he develops hematuria again. Once his Lovenox supply is finished he will be converted to Eliquis. Cc Dr. Patterson Cc Dr. Strong Allergies Coded Allergies: celecoxib (Verified Adverse Reaction, Intermediate, DIZZINESS, 11/04/19) TEOFILO MCKEON MD Jun 01, 2020 14:20
== END ==
LOC: M TMIRPOV 13:47
PROVIDERS: ATTEND Radiology Diagnostic Radiology
DX: Z95.828 Presence of other vascular implants and grafts (principal); Z79.01 Long term (current) use of anticoagulants; Z88.8 Allergy status to other drugs, medicaments and biological substances

== ENCOUNTER → 2020-06-13 | Outpatient (POV) | payer MEDICARE, OTHER ==
--- NOTE | 2020-06-15 10:47 | IRPN ---
[facility] IR Progress Note IR Progress Note DATE: Jun 13, 2020 Patient agreed to this telephone follow-up. I spent 10 minutes talking to the patient. FOLLOW-UP: 80-year-old male status post inferior vena cava and by iliac vein reconstruction and stenting. Patient is now on Eliquis and takes a baby aspirin every day. He has stopped his Lovenox and his Plavix. He describes no further hematuria. He describes his breathing is much better post stenting. He has a follow-up with [facility] in 6 months. ON EXAMINATION: No video on patient side. IMPRESSION: Doing well status post inferior vena cava and by iliac vein stent reconstruction. Patient to continue Eliquis and aspirin for now. Patient to follow-up with [facility] in [address] Patterson Cc Dr. Srtong Allergies Coded Allergies: celecoxib (Verified Adverse Reaction, Intermediate, DIZZINESS, 11/04/19) TEOFILO MCKEON MD Jun 15, 2020 10:47
== END ==
LOC: M TMIRPOV 07:53
PROVIDERS: ATTEND Radiology Diagnostic Radiology
DX: Z48.816 Encounter for surgical aftercare following surgery on the genitourinary system (principal); Z95.828 Presence of other vascular implants and grafts; Z79.01 Long term (current) use of anticoagulants; Z79.82 Long term (current) use of aspirin

== ENCOUNTER → 2020-06-26 | Outpatient (REF) | payer MEDICARE, OTHER ==
[2020-06-26 13:51] LABS: ALBUMIN 3.7 GM/DL (3.2-5.2); BILIRUBIN,TOTAL 0.6 MG/DL (0.2-1.0); CALCIUM LEVEL 9.3 MG/DL (8.8-10.2); CHOLESTEROL RISK RATIO 3.411 (<5); CREATININE FOR GFR 1.51 MG/DL (0.70-1.30); GLOMERULAR FILTRATION RATE 47.7 (>42); POTASSIUM SERUM 4.8 MEQ/L (3.5-5.1); TOTAL PROTEIN 7.4 GM/DL (6.4-8.2)
[2020-06-26 13:53] LABS: CREATININE, URINE 66.8 MG/DL; MALB URINE SIEMENS 6.1 MG/L; MAU/CREAT RATIO 9.1 MCG/MG (0.0-30.0)
[2020-06-26 14:07] LABS: HEMOGLOBIN A1c 5.5 %
== END ==
LOC: M SFHCADAM 10:34
PROVIDERS: ATTEND Internal Medicine
DX: E78.00 Pure hypercholesterolemia, unspecified (principal); R73.01 Impaired fasting glucose

== ENCOUNTER → 2020-11-28 | Outpatient (POV) | payer MEDICARE, OTHER ==
[~2020-11-28] VITALS: Ht 185.4 cm; Wt 97.7 kg
[2020-11-28 10:50] VITALS: BP 142/84
--- NOTE | 2020-11-29 11:37 | IRCOV ---
[facility] IR Consult Office Visit IR Consult Office Visit DATE: Nov 28, 2020 REASON FOR CONSULTATION/CHIEF COMPLAINT: Saphenous vein incompetency. 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 Patient has since undergone complete iliac and IVC reconstruction with stent placement, which has resulted in marked improvement in his shortness of breath and energy levels. Patient is now active and enjoying life. He remains on anticoagulation for life. His prior imaging revealed patency of the stents. Patient does describe some bilateral lower extremity foot pain and bulging varicose veins, for which he's been referred to me by Dr. Strong, for evaluation of his saphenous veins. Patient describes long history of bilateral lower extremity foot pain, at the heel and at the toes. He describes, that he has to constantly move his feet to relieve this pain. The pain is worse with prolonged standing. He also describes the pain is there at night when he puts his feet up and relieved by getting up and walking around. He describes bulging varicose veins at the left ankle and along his left medial thigh. He states he's had these for a long time. He denies any new swelling or pain in the left lower extremity. He denies any prior cold leg, arterial thrombosis, gangrene, amputation or arterial intervention. He denies any prior saphenous vein intervention. He denies chest pain, shortness of breath, orthopnea or paroxysmal nocturnal dyspnea. There is no history of heart attack or stroke. He's a nonsmoker. ALLERGIES: Please see below. HOME MEDICATIONS: Please see below. PAST MEDICAL HISTORY: Hypercholesterolemia Impaired fasting glucose Anxiety and depression Paget's disease Sensory peripheral neuropathy Lumbar spinal stenosis Elevated PSA PAST SURGICAL HISTORY: Left inguinal herniorrhaphy Pilonidal cystectomy Deviated septum repair Left elbow surgery Left knee replacement. Left shoulder surgery Microwave ablation of the prostate TURP Right hemicolectomy Bilateral common iliac vein, external iliac and IVC reconstruction and stenting for chronic occlusion related to OSH trapeze filter. FAMILY HISTORY: Noncontributory. SOCIAL HISTORY: Nonsmoker. Denies alcohol or drugs. REVIEW OF SYSTEMS: Otherwise negative. PHYSICAL EXAMINATION: VITAL SIGNS: Please see below. GENERAL APPEARANCE: Appears well. Comfortable at rest. HEENT: No scleral icterus. RESPIRATORY: Normal breathing at rest. CARDIOVASCULAR: Normal rate. Murmur. ABDOMEN: Soft nontender. EXTREMITIES: Left lower extremity: Color and temperature normal. No significant edema. There are spider veins visible. Hemosiderin deposition around the ankle. Bulging varicose veins over the medial malleolus. Bulging varicose veins of the posterio medial left thigh. Calf soft nontender. Patchy sensory loss 4 out of 5 from mid calf to the toes. Motor 5 out of 5. Femoral pulse 2+ popliteal pulse 2+ DP/ PT 2+. No ulcers. Right lower extremity: No edema. Warm to touch. Color unremarkable. Spider veins visible. No bulging varicose veins visible. Sensory loss from mid calf to toes in patchy distribution. Motor 5 out of 5. Femoral pulse 2+ popliteal pulse 2+ D P/PT 2+. No ulcers. NEUROLOGICAL: Alert and oriented. PSYCHIATRIC: Appropriate to circumstance. LABORATORY DATA: None recent. Imaging: I personally reviewed the CT abdomen and pelvis obtained 05/23/2020. Stent reconstruction of the IVC, starting at the renal vein inflow, down to bilateral common iliac and external iliac veins. On the same CT scan, I observed that he has significant bilateral neuroforaminal stenosis at L2-3, L3-4 and L4-5. ASSESSMENT/PLAN: 80-year-old male, status post venous reconstruction of IVC and bilateral common iliac and external iliac veins for chronic occlusion. Patient is doing much better in terms of his shortness of breath and energy levels, status post venous reconstruction. He does have bulging varicose veins and discomfort with prolonged standing. This may be secondary to saphenous vein incompetency and is referred for possible EVLT therapy. I discussed this with Dr. Strong and he recommends, a bilateral lower extremity venous reflux study to evaluate for saphenous vein reflux. The thought being that if there is saphenous vein reflux and the deep system is patent, EVLT of the saphenous veins will improve flow through the deep system, through the stents and back to the heart. At the same time, would relieve his lower extremity discomfort. Peripheral neuropathy may be superimposed on his symptoms, and he has multilevel lumbar neuroforaminal stenosis. It is difficult to differentiate how much of what symptoms he gets from which. However, the arterial supply to his bilateral lower extremity appears to be good and not likely the cause of his pain. I have ordered a bilateral lower extremity standing venous reflux study to evaluate for saphenous vein incompetency. I spent 30 minutes reviewing patient's records, imaging and in consultation with the patient. Thank you for this referral. Cc Dr. Jonathon Strong Cc Dr. Patterson Allergies Coded Allergies: celecoxib (Verified Adverse Reaction, Intermediate, DIZZINESS, 11/04/19) Home Medications Scheduled Bisoprolol Fumarate (Bisoprolol Fumarate), 2.5 MG PO DAILY, (Reported) Furosemide (Furosemide), 40 MG PO DAILY, (Reported) Magnesium Oxide (Magnesium), 250 MG PO Q2D, (Reported) Nortriptyline HCl (Nortriptyline HCl), 25 MG PO Q2D, (Reported) Pregabalin (Lyrica), 75 MG PO BID, (Reported) Warfarin Sodium (Warfarin Sodium), 5 MG PO QHS, (Reported) VS, I&O, 24H, Fishbone Vital Signs/I&O Vital Signs Date Time Temp Pulse Resp B/P (MAP) Pulse Ox O2 Delivery O2 Flow Rate FiO2 11/28/20 10:50 97.1 99 20 142/84 (103) 98 Room Air TEOFILO MCKEON MD Nov 29, 2020 11:37
== END ==
LOC: M IRPOV 10:44
PROVIDERS: ATTEND Radiology Diagnostic Radiology
DX: I82.523 Chronic embolism and thrombosis of iliac vein, bilateral (principal); E78.00 Pure hypercholesterolemia, unspecified; G62.9 Polyneuropathy, unspecified; M48.061 Spinal stenosis, lumbar region without neurogenic claudication; R97.20 Elevated prostate specific antigen [PSA]; Z79.01 Long term (current) use of anticoagulants; Z79.899 Other long term (current) drug therapy; Z88.8 Allergy status to other drugs, medicaments and biological substances; Z95.828 Presence of other vascular implants and grafts; Z96.652 Presence of left artificial knee joint

== ENCOUNTER → 2020-12-11 | Outpatient (CLI) | payer MEDICARE, OTHER ==
--- NOTE | 2020-12-11 12:07 | REP ---
INDICATION: VARICOSE VEINS. COMPARISON: None. TECHNIQUE: Multiple ultrasonographic images of the deep venous structures of the bilateral lower extremity were obtained from the inguinal ligament to the ankle. Venous compression techniques, color doppler imaging, and augmentation techniques were also obtained where appropriate. As per the ACR guidelines the anterior tibial vein can not be effectively evaluated. Only compression techniques in the calf on the peroneal and posterior tibial veins was attempted/performed. FINDINGS: On the right: There is no abnormal echogenic material seen within any of the visualized deep venous structures that would suggest acute thrombosis. Coaptation is unremarkable throughout. Doppler interrogation shows an expected response to respiratory variability and augmentation in the thigh. Compression techniques in the calf were unobtainable. The color flow images show what appears to be a normal vascular pattern throughout the thigh. Seen in the right posterior popliteal fossa a 7.1 x 2.9 x 1.3 cm size complex cystic appearing structure was identified consistent with a Mcfarland's cyst. On the left: Abnormal echogenic material is seen throughout common femoral vein, superficial femoral vein, and popliteal vein. Coaptation is unobtainable. Seen in the left posterior popliteal fossa a 5.7 x 2.3 x 1.1 cm sized complex anechoic structure is seen consistent with a Mcfarland's cyst. Deep vein reflux study on the right: Reflux of 3.7 seconds duration was seen in the common femoral vein. An anterior accessory greater saphenous vein was not identified. Reflux was seen in the greater saphenous vein at the saphenofemoral junction of 3 seconds duration the AP dimension of which measured 6 mm. Reflux was seen in the greater saphenous vein at the mid thigh level of 4 seconds duration the AP dimension of which measured 6 mm. Reflux was seen in the greater saphenous vein at the level of the knee of 3 seconds duration the AP dimension of which measured 6 mm. Reflux was seen in all 3 components of the superficial femoral vein. Approximately 5.3 seconds duration, midportion 6.4 seconds duration, and distally 4.7 seconds duration. Reflux was seen in the popliteal vein. Reflux of 3 seconds duration was seen in the lesser saphenous vein the AP dimension of which measured 3 mm. Deep vein reflux study on the left: No reflux was seen in the common femoral vein. An anterior accessory greater saphenous vein is not present. Reflux of 5.2 seconds duration was seen in the greater saphenous vein at the saphenous femoral junction the AP dimension of which measured 6 mm. Reflux was seen in the greater saphenous vein of 6.6 seconds duration at the level of the mid thigh the AP dimension of which measures 6 mm. Reflux was seen in the greater saphenous vein at the level of the knee of 6.1 seconds duration the AP dimension of which measured 6 mm. No portion of the superficial femoral vein or popliteal vein were evaluated for reflux due to the identified thrombus. No reflux was seen in the lesser saphenous vein the AP dimension of which measured 3 mm. IMPRESSION: There is no ultrasonographic evidence of deep venous thrombosis involving any of the visualized deep venous structures of the right lower extremity as described above. Due to technical parameters calf vein DVT can not be ruled out. There is a Mcfarland's cyst on the right as described above. Deep vein reflux study on the right as described above. Extensive left thigh DVT as described above. Left lower extremity reflux study as described above. Left-sided Mcfarland's cyst as described above. <Electronically signed by Attila Ma > 12/11/20 [id number]
== END ==
LOC: M RAD 10:32
PROVIDERS: ATTEND Radiology Diagnostic Radiology
DX: I83.813 Varicose veins of bilateral lower extremities with pain (principal)

== ENCOUNTER → 2021-01-02 | Outpatient (POV) | payer MEDICARE, OTHER ==
[~2021-01-02] VITALS: Ht 154.9 cm; Wt 95.4 kg
[2021-01-02 09:30] VITALS: BP 140/90
--- NOTE | 2021-01-05 11:27 | IRPN ---
[facility] IR Progress Note IR Progress Note DATE: Jan 02, 2021 FOLLOW-UP: 80-year-old male with chronic left lower extremity venous hypertension, prior IVC and left iliac vein occlusion, now status post IVC reconstruction and bilateral iliac vein stenting. Patient had a venous reflux study performed for left lower extremity pain. Patient presents for follow-up on his ultrasound imaging. Imaging: I personally reviewed his bilateral lower extremity venous reflux study performed 12/11/2020. Left common femoral vein and femoral vein are both patent. There is some scarring and peripheral irregularity in the distal left femoral vein. There is thrombus within the left popliteal vein, this is located centrally with only partial compressibility. No flow in the left popliteal vein. Left greater saphenous vein measures 6 mm and does demonstrate greater than 0.5 seconds reflux. No reflux in the lesser saphenous vein. Mcfarland's cyst in the popliteal fossa. Right lower extremity GSV dilated with greater than 0.5 seconds of reflux. There is reflux in the right lesser saphenous vein. No right lower extremity DVT. Mcfarland's cyst in the popliteal fossa. 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 Patient had a bilateral lower extremity reflux study performed to evaluate for venous insufficiency in the left lower extremity, contributing to his pain. This does demonstrate dilated greater saphenous vein with reflux. However, there is a popliteal vein thrombus which appears acute. At this time patient is not a candidate for left lower extremity EVLT therapy. Patient to continue on Eliquis. Patient does not have increased left lower extremity pain or swelling. Patient to seek immediate attention if there is any increase in left lower extremity swelling and pain and/or shortness of breath. Follow-up in IR clinic in [address] Patterson Allergies Coded Allergies: celecoxib (Verified Adverse Reaction, Intermediate, DIZZINESS, 11/04/19) VS,Fishbone, I+O VS, Fishbone, I+O Vital Signs Date Time Temp Pulse Resp B/P (MAP) Pulse Ox O2 Delivery O2 Flow Rate FiO2 01/02/21 09:30 97.6 60 20 140/90 (107) 96 Room Air TEOFILO MCKEON MD Jan 05, 2021 11:27
== END ==
LOC: M IRPOV 09:22
PROVIDERS: ATTEND Radiology Diagnostic Radiology
DX: I87.392 Chronic venous hypertension (idiopathic) with other complications of left lower extremity (principal); I82.432 Acute embolism and thrombosis of left popliteal vein; M71.21 Synovial cyst of popliteal space [Baker], right knee; Z88.8 Allergy status to other drugs, medicaments and biological substances; Z95.828 Presence of other vascular implants and grafts
CPT/HCPCS: 36415; 80053; 80061; 83036; 85025; G0463

== ENCOUNTER → 2021-01-02 | Outpatient (CLI) | payer MEDICARE, OTHER ==
[2021-01-02 11:15] LABS: BASO % 0.7 % (0.0-1.0); EOS # 0.1 10^3/uL (0.0-0.5); EOS % 2.3 % (0.0-3.0); HEMATOCRIT 47.5 % (42.0-52.0); HEMOGLOBIN 15.4 g/dl (13.5-17.5); LYMPH # 1.5 10^3/uL (1.5-5.0); LYMPH % 23.8 % (24.0-44.0); MEAN CORPUSCULAR HEMOGLOBIN 30.8 pg (27.0-33.0); MEAN CORPUSCULAR HGB CONC 32.4 g/dl (32.0-36.5); MONO # 0.6 10^3/uL (0.0-0.8); MONO % 9.4 % (2.0-8.0); NEUTROPHILS # 3.9 10^3/uL (1.5-8.5); NEUTROPHILS % 63.3 % (36.0-66.0); PLATELET COUNT, AUTOMATED 216 10^3/uL (150-450); WHITE BLOOD COUNT 6.1 10^3/uL (4.0-10.0)
[2021-01-02 12:01] LABS: ALBUMIN 4.1 GM/DL (3.2-5.2); BILIRUBIN,TOTAL 0.7 MG/DL (0.2-1.0); CALCIUM LEVEL 9.2 MG/DL (8.8-10.2); CHOLESTEROL RISK RATIO 3.774 (<5); CREATININE FOR GFR 1.26 MG/DL (0.70-1.30); GLOMERULAR FILTRATION RATE 58.8 (>42); POTASSIUM SERUM 4.6 MEQ/L (3.5-5.1); TOTAL PROTEIN 7.3 GM/DL (6.4-8.2)
[2021-01-02 12:43] LABS: HEMOGLOBIN A1c 5.7 %
== END ==
LOC: M LAB 10:04
PROVIDERS: ATTEND Internal Medicine
DX: E78.00 Pure hypercholesterolemia, unspecified (principal); R73.01 Impaired fasting glucose; Z86.010 Personal history of colon polyps

== ENCOUNTER → 2021-08-21 | Outpatient (POV) | payer MEDICARE, OTHER ==
[~2021-08-21] VITALS: Ht 182.9 cm; Wt 100.9 kg
[2021-08-21 09:25] VITALS: BP 136/86
== END ==
LOC: M IRPOV 09:23
PROVIDERS: ATTEND Radiology Diagnostic Radiology
DX: R06.02 Shortness of breath (principal); Z86.711 Personal history of pulmonary embolism; Z95.828 Presence of other vascular implants and grafts

== ENCOUNTER → 2021-11-29 | Outpatient (CLI) | payer MEDICARE, OTHER | LOC: M SLEEP 18:36 | PROVIDERS: ATTEND Internal Medicine Pulmonary Disease | DX: G47.33 Obstructive sleep apnea (adult) (pediatric) (principal) ==

== ENCOUNTER → 2021-12-19 | Outpatient (CLI) | payer MEDICARE, OTHER | LOC: M SLEEP 20:00 | PROVIDERS: ATTEND Internal Medicine Pulmonary Disease | DX: G47.33 Obstructive sleep apnea (adult) (pediatric) (principal) ==

== ENCOUNTER → 2022-01-17 | Outpatient (CLI) | payer MEDICARE, OTHER ==
[2022-01-17 10:55] LABS: HEMATOCRIT 49.1 % (42.0-52.0); HEMOGLOBIN 15.7 g/dl (13.5-17.5); MEAN CORPUSCULAR HEMOGLOBIN 30.3 pg (27.0-33.0); MEAN CORPUSCULAR VOLUME 94.6 fl (80.0-96.0); PLATELET COUNT, AUTOMATED 244 10^3/uL (150-450); RED BLOOD COUNT 5.19 10^6/uL (4.30-6.10); WHITE BLOOD COUNT 7.5 10^3/uL (4.0-10.0)
[2022-01-17 11:21] LABS: HEMOGLOBIN A1c 6.1 %
[2022-01-17 11:36] LABS: ALBUMIN 3.5 GM/DL (3.2-5.2); BILIRUBIN,TOTAL 0.4 MG/DL (0.2-1.0); C REACTIVE PROTEIN QUANTITATIV 0.87 MG/DL (0.00-0.30); CHOLESTEROL RISK RATIO 4.054 (<5); CREATININE FOR GFR 1.41 MG/DL (0.70-1.30); FREE T4 0.94 NG/DL (0.76-1.46); GLOMERULAR FILTRATION RATE 51.5 (>35); POTASSIUM SERUM 4.7 MEQ/L (3.5-5.1); THYROID STIMULATING HORMONE 4.34 uIU/ML (0.358-3.740); TOTAL PROTEIN 7.3 GM/DL (6.4-8.2)
[2022-01-17 11:38] LABS: MAU/CREAT RATIO 6.1 MCG/MG (0.0-30.0)
[2022-01-17 12:07] LABS: TOTAL 25(OH) VITAMIN D 20.6 NG/ML (30.0-100.0)
== END ==
LOC: M PLALAB 07:50
PROVIDERS: ATTEND Internal Medicine Hematology
DX: N18.31 Chronic kidney disease, stage 3a (principal); Z79.899 Other long term (current) drug therapy

== ENCOUNTER → 2022-01-29 | Outpatient (CLI) | payer MEDICARE, OTHER ==
[2022-01-29 13:51] LABS: BASO # 0.1 10^3/uL (0.0-0.2); BASO % 0.9 % (0.0-1.0); EOS # 0.3 10^3/uL (0.0-0.5); HEMATOCRIT 50.6 % (42.0-52.0); HEMOGLOBIN 15.6 g/dl (13.5-17.5); LYMPH # 1.9 10^3/uL (1.5-5.0); LYMPH % 28.3 % (24.0-44.0); MEAN CORPUSCULAR HEMOGLOBIN 30.2 pg (27.0-33.0); MEAN CORPUSCULAR HGB CONC 30.8 g/dl (32.0-36.5); MEAN CORPUSCULAR VOLUME 98.1 fl (80.0-96.0); MONO # 0.7 10^3/uL (0.0-0.8); MONO % 10.8 % (2.0-8.0); NEUTROPHILS # 3.6 10^3/uL (1.5-8.5); NEUTROPHILS % 54.6 % (36.0-66.0); PLATELET COUNT, AUTOMATED 281 10^3/uL (150-450); RED BLOOD COUNT 5.16 10^6/uL (4.30-6.10); WHITE BLOOD COUNT 6.6 10^3/uL (4.0-10.0)
[2022-01-29 14:47] LABS: ALBUMIN 3.8 GM/DL (3.2-5.2); ALT/SGPT 42 U/L (12-78); BILIRUBIN,TOTAL 0.5 MG/DL (0.2-1.0); BLOOD UREA NITROGEN 24 MG/DL (7-18); C REACTIVE PROTEIN QUANTITATIV 0.85 MG/DL (0.00-0.30); CALCIUM LEVEL 9.3 MG/DL (8.8-10.2); CARBON DIOXIDE LEVEL 28 MEQ/L (21-32); CHLORIDE LEVEL 108 MEQ/L (98-107); CREATININE FOR GFR 1.58 MG/DL (0.70-1.30); ERYTHROCYTE SEDIMENTATION RATE 13 mm/hr (0-20); GLOMERULAR FILTRATION RATE 45.1 (>35); GLUCOSE, FASTING 116 MG/DL (70-100); POTASSIUM SERUM 4.6 MEQ/L (3.5-5.1); RHEUMATOID FACTOR QUANT < 10.0 IU/ML (<15.0); SODIUM LEVEL 139 MEQ/L (136-145); TOTAL PROTEIN 7.7 GM/DL (6.4-8.2); URIC ACID 7.7 MG/DL (3.5-7.2)
== END ==
LOC: M PLALAB 10:10
PROVIDERS: ATTEND Physician Assistant Surgical
DX: M47.896 Other spondylosis, lumbar region (principal)

== ENCOUNTER → 2022-09-09 | Outpatient (CLI) | payer MEDICARE, OTHER ==
[~2022-09-09] MED LIST changes: +ELIQ5TAB; +FINA5TAB2; +HYDR-3713 PO
== END ==
LOC: M PLAIMG 10:56
PROVIDERS: ATTEND Internal Medicine Pulmonary Disease
DX: R06.00 Dyspnea, unspecified (principal)

== ENCOUNTER → 2022-09-10 | Outpatient (REF) | payer MEDICARE, OTHER ==
[~2022-09-10] MED LIST changes: -ELIQ5TAB; -FINA5TAB2; -HYDR-3713 PO
[2022-09-10 14:52] LABS: APPEARANCE, URINE CLEAR (CLEAR); BACTERIA, URINE AUTO NEGATIVE (NEGATIVE); BILIRUBIN, URINE AUTO NEGATIVE (NEGATIVE); BLOOD, URINE BLOOD NEGATIVE (NEGATIVE); COLOR, URINE YELLOW (YELLOW); GLUCOSE, URINE (UA) AUTO 3+ mg/dL (NEGATIVE); KETONE, URINE AUTO TRACE mg/dL (NEGATIVE); LEUKOCYTE ESTERASE, URINE AUTO NEGATIVE (NEGATIVE); MUCUS, URINE SMALL (NEGATIVE); NITRITE, URINE AUTO NEGATIVE (NEGATIVE); PROTEIN, URINE AUTO NEGATIVE (NEGATIVE); RBC, URINE AUTO 0 /HPF (0-3); SPECIFIC GRAVITY URINE AUTO 1.017 (1.002-1.035); SQUAMOUS EPITHELIAL CELL UR AU 0 /HPF (0-6); UROBILINOGEN, URINE AUTO 0.2 mg/dL (0.0-2.0); WBC, URINE AUTO 0 /HPF (0-3)
== END ==
LOC: M SMT 13:09
PROVIDERS: ATTEND Physician Assistant
DX: R31.0 Gross hematuria (principal)

== ENCOUNTER 2022-09-24 13:21 | Emergency (ER) | payer MEDICARE, OTHER ==
[~2022-09-24] VITALS: Ht 185.4 cm; Wt 102.3 kg
[2022-09-24] MEDS ORDERED: FINA5TAB2 (13:33)
[2022-09-24] MEDS ORDERED: ELIQ5TAB (13:33)
[2022-09-24 14:18] LABS: BASO # 0.1 10^3/uL (0.0-0.2); BASO % 0.8 % (0.0-1.0); EOS # 0.1 10^3/uL (0.0-0.5); EOS % 1.4 % (0.0-3.0); HEMATOCRIT 46.9 % (42.0-52.0); HEMOGLOBIN 15.8 g/dl (13.5-17.5); LYMPH # 1.5 10^3/uL (1.5-5.0); MEAN CORPUSCULAR HEMOGLOBIN 31.7 pg (27.0-33.0); MEAN CORPUSCULAR HGB CONC 33.7 g/dl (32.0-36.5); MEAN CORPUSCULAR VOLUME 94.2 fl (80.0-96.0); MONO # 0.6 10^3/uL (0.0-0.8); MONO % 8.9 % (2.0-8.0); NEUTROPHILS # 4.7 10^3/uL (1.5-8.5); NEUTROPHILS % 65.4 % (36.0-66.0); PLATELET COUNT, AUTOMATED 242 10^3/uL (150-450); RED BLOOD COUNT 4.98 10^6/uL (4.30-6.10); WHITE BLOOD COUNT 7.2 10^3/uL (4.0-10.0)
[2022-09-24 14:50] LABS: ALBUMIN 3.9 G/DL (3.2-5.2); BILIRUBIN,DIRECT 0.2 MG/DL (<0.4); BILIRUBIN,TOTAL 0.8 MG/DL (0.3-1.2); TOTAL PROTEIN 7.2 G/DL (5.7-8.2)
[2022-09-24] MEDS ORDERED: ISOVUE-370 76% 100ML VIAL As Ordered ONE (17:05)
[2022-09-24] MEDS ORDERED: HYDR-3713 PO (20:18)
[2022-09-24] MEDS ORDERED: NORCO, ANEXSIA 5/325MG TABLET (HYDROcodone/ACETAMINOPHEN) PO ONE (20:20)
[2022-09-24 20:35] VITALS: BP 163/82
== END 2022-09-24 20:38 | disposition home or self-care (01) ==
LOC: M ED 13:21
DX: R10.31 Right lower quadrant pain (principal); E11.9 Type 2 diabetes mellitus without complications; G47.33 Obstructive sleep apnea (adult) (pediatric); F41.9 Anxiety disorder, unspecified; F32.A Depression, unspecified; E78.5 Hyperlipidemia, unspecified; C61 Malignant neoplasm of prostate; F10.10 Alcohol abuse, uncomplicated; Z88.6 Allergy status to analgesic agent; Z79.01 Long term (current) use of anticoagulants; Z79.899 Other long term (current) drug therapy
CPT/HCPCS: 36415; 74177; 80047; 80076; 81001; 85025; 99284; Q9967

== ENCOUNTER 2023-12-21 19:24 | Emergency (ER) | payer MEDICARE, OTHER ==
[~2023-12-21] VITALS: Ht 185.4 cm; Wt 60.9 kg
[~2023-12-21 19:24] MED LIST changes: +FINA5TAB2 PO; +HYDR-3713 PO
[2023-12-21 20:21] LABS: BASO % 0.6 % (0.0-1.0); EOS % 1.1 % (0.0-3.0); HEMATOCRIT 45.3 % (42.0-52.0); HEMOGLOBIN 15.2 g/dl (13.5-17.5); LYMPH # 0.4 10^3/uL (1.5-5.0); LYMPH % 10.8 % (24.0-44.0); MEAN CORPUSCULAR HEMOGLOBIN 31.5 pg (27.0-33.0); MEAN CORPUSCULAR HGB CONC 33.6 g/dl (32.0-36.5); MONO # 0.5 10^3/uL (0.0-0.8); MONO % 14.5 % (2.0-8.0); NEUTROPHILS # 2.6 10^3/uL (1.5-8.5); NEUTROPHILS % 72.7 % (36.0-66.0); PLATELET COUNT, AUTOMATED 169 10^3/uL (150-450); RED BLOOD COUNT 4.82 10^6/uL (4.30-6.10); WHITE BLOOD COUNT 3.5 10^3/uL (4.0-10.0)
[2023-12-21 20:22] LABS: RSV AMPLIFICATION NEGATIVE (NEGATIVE)
[2023-12-21] MEDS: ACETAMINOPHEN 325 MG TAB PO ONE (20:33)
[2023-12-21] MEDS: methylPREDNISolone 125MG 2ML VIAL IV ONE (20:33)
[2023-12-21 20:44] LABS: ALBUMIN 3.5 G/DL (3.2-5.2); BILIRUBIN,DIRECT 0.2 MG/DL (<0.4); BILIRUBIN,TOTAL 0.7 MG/DL (0.3-1.2); CALCIUM LEVEL 8.9 MG/DL (8.3-10.6); CREATININE FOR GFR 1.26 MG/DL (0.70-1.30); GLOMERULAR FILTRATION RATE 58.3 (>35); POTASSIUM SERUM 4.1 MMOL/L (3.5-5.1); TOTAL PROTEIN 6.9 G/DL (5.7-8.2)
[2023-12-21 20:46] LABS: THYROID STIMULATING HORMONE 2.284 uIU/ML (0.55-4.78); THYROXINE (T4) 8.6 UG/DL (4.5-10.9)
[2023-12-21] MEDS ORDERED: ISOVUE-370 76% 100ML VIAL As Ordered ONE (22:28)
[2023-12-21] MEDS ORDERED: ERGO500029 PO (22:29)
[2023-12-21] MEDS ORDERED: MAGN400T2 PO (22:29)
[2023-12-21] MEDS ORDERED: ACET-897 PO (22:32)
[2023-12-21] MEDS ORDERED: HOME MED LIST COMPLETE! XX SCH (22:35)
[2023-12-21 23:05] VITALS: BP 108/64; TEMP 99.1; O2SAT 96
[2023-12-21] MEDS ORDERED: NIRM1TAB14 PO (23:05)
== END 2023-12-21 23:17 | disposition home or self-care (01) ==
LOC: M ED 19:24 → EDBD 19:24 → M ED 23:17
DX: U07.1 COVID-19 (principal); R53.1 Weakness; R06.02 Shortness of breath; E78.5 Hyperlipidemia, unspecified; N40.0 Benign prostatic hyperplasia without lower urinary tract symptoms; F41.9 Anxiety disorder, unspecified; F32.0 Major depressive disorder, single episode, mild; Z86.711 Personal history of pulmonary embolism; Z86.718 Personal history of other venous thrombosis and embolism; Z79.01 Long term (current) use of anticoagulants
CPT/HCPCS: 71045; 80048; 80076; 83605; 83880; 84436; 84443; 85025; 87040; 87631; 93005; 93041; 94760; 96374; 99284; J2919

== ENCOUNTER → 2024-02-02 | Outpatient (CLI) | payer MEDICARE, OTHER ==
[~2024-02-02] MED LIST changes: +ACET-897 PO; +ERGO500029 PO; +MAGN400T2 PO; +NIRM1TAB14 PO
[2024-02-02 17:39] LABS: BASO # 0.1 10^3/uL (0.0-0.2); BASO % 0.7 % (0.0-1.0); EOS # 0.2 10^3/uL (0.0-0.5); EOS % 3.5 % (0.0-3.0); HEMATOCRIT 47.7 % (42.0-52.0); HEMOGLOBIN 15.7 g/dl (13.5-17.5); LYMPH # 1.9 10^3/uL (1.5-5.0); LYMPH % 27.3 % (24.0-44.0); MEAN CORPUSCULAR HGB CONC 32.9 g/dl (32.0-36.5); MEAN CORPUSCULAR VOLUME 94.1 fl (80.0-96.0); MONO # 0.7 10^3/uL (0.0-0.8); MONO % 9.9 % (2.0-8.0); NEUTROPHILS % 58.2 % (36.0-66.0); PLATELET COUNT, AUTOMATED 251 10^3/uL (150-450); RED BLOOD COUNT 5.07 10^6/uL (4.30-6.10)
[2024-02-02 18:01] LABS: C REACTIVE PROTEIN QUANTITATIV < 0.40 MG/DL (<1.0)
[2024-02-02 18:03] LABS: ALBUMIN 3.8 G/DL (3.2-5.2); ALKALINE PHOSPHATASE 108 U/L (46-116); ALT/SGPT 20 U/L (7.0-40); AST/SGOT 15 U/L (<34); BILIRUBIN,TOTAL 0.6 MG/DL (0.3-1.2); BLOOD UREA NITROGEN 16 MG/DL (9-23); CALCIUM LEVEL 9.6 MG/DL (8.3-10.6); CARBON DIOXIDE LEVEL 26 MMOL/L (20-31); CHLORIDE LEVEL 106 MMOL/L (98-107); CHOLESTEROL LEVEL 223 MG/DL (<200); CHOLESTEROL RISK RATIO 3.36 (<5); CREATININE FOR GFR 1.19 MG/DL (0.70-1.30); GLOMERULAR FILTRATION RATE > 60.0 (>35); GLUCOSE, FASTING 94 MG/DL (74-106); HDL CHOLESTEROL 66.3 MG/DL (>40); IRON (FE) 85 UG/DL (65-175); LDL CHOLESTEROL 127.1 MG/DL (<100); NON-HDL-C 156.7 MG/DL; POTASSIUM SERUM 4.2 MMOL/L (3.5-5.1); SODIUM LEVEL 139 MMOL/L (136-145); TOTAL PROTEIN 7.4 G/DL (5.7-8.2); TRIGLYCERIDES LEVEL 148 MG/DL (<150)
[2024-02-02 18:04] LABS: CREATININE, URINE 144.3 MG/DL
[2024-02-02 18:05] LABS: MALB URINE SIEMENS < 3.0 MG/L
[2024-02-02 18:06] LABS: FREE T4 1.25 NG/DL (0.89-1.76)
[2024-02-02 18:07] LABS: THYROID STIMULATING HORMONE 2.616 uIU/ML (0.55-4.78)
[2024-02-02 18:08] LABS: TOTAL 25(OH) VITAMIN D 79.5 NG/ML (20.0-100.0)
[2024-02-02 18:09] LABS: VITAMIN B12 LEVEL 407 PG/ML (211-911)
[2024-02-02 18:14] LABS: HEMOGLOBIN A1c 5.6 % (4.0-6.0)
== END ==
LOC: M PLALAB 15:03
PROVIDERS: ATTEND Internal Medicine Hematology
DX: E78.00 Pure hypercholesterolemia, unspecified (principal); Z86.718 Personal history of other venous thrombosis and embolism; Z79.899 Other long term (current) drug therapy